=== PATIENT | female | born 1955 | race Caucasian/White ===

== ENCOUNTER → 2020-05-07 | Outpatient (CLI) | payer BC ==
--- NOTE | 2020-05-07 18:44 | BD ---
EXAMINATION TYPE: Axial Bone Density DATE OF EXAM: 05/07/2020 COMPARISON: 03.02.2015 CLINICAL HISTORY: 64 YR OLD FEMALE....ICD-10 CODE: Z78.0 POST MENOPAUSAL Height: 66 Weight: 115 FRAX RISK QUESTIONS: Glucocorticoids (More than 3mos): YES (Ex: prednisone, prednisolone, methylprednisolone, dexamethasone, and hydrocortisone). History of Fracture in Adulthood: YES Secondary Osteoporosis: YES 3. Menopause before 45: YES Current Tobacco Use: YES RISK FACTORS HISTORY OF: History of Wrist Fracture: RT WRIST AT 62 YRS OLD Postmenopausal woman: YES AT AGE 40 YRS OLD....TOTAL HYST Take estrogen and/or progesterone medications: YES, IN THE PAST FOR ABOUT 1-2 YRS Hyperparathyroidism: NO Adrenal Insufficiency: NO MEDICATIONS: Prednisone or other steroids: SYMBACORT FOR COPD Additional Medications: VIT D AND CALCIUM Additional History: COPD EXAM MEASUREMENTS: Bone mineral densitometry was performed using the 6fusion System. Bone mineral density as measured about the Lumbar spine is: ----- L1-L4(G/cm2): 0.851 T Score Values are as follows: ----- L1: -4.3 ----- L2: -3.5 ----- L3: -2.3 ----- L4: -1.3 ----- L1-L4: -2.7 Bone mineral density has: Decreased -2.9% SINCE.... 03.02.2015 Bone mineral density about the R hip (g/cm2): 0.725 Bone mineral density about the L hip (g/cm2): 0.700 T Score values are as follows: -----R Neck: -2.6 -----L Neck: -2.5 -----R Total: -2.2 -----L Total: -2.4 Bone mineral density has: Decreased -8.7% SINCE..... 03.02.2015 FRAX%s: THERE IS A 30.9% CHANCE FOR A MAJOR OSTEOPOROTIC FX AND A 13.0% FOR HIP......PROBABILITY FO R FX IN 10 YRS TIME IMPRESSION: Osteoporosis (T Score less than -2.5). There is increased fracture risk and therapy is usually indicated based on age. Re-Screen 1-2 years. NOTE: T-SCORE=SD OF THE YOUNG ADULT MEAN.
== END | disposition home or self-care (01) ==
LOC: RADBDWWP 11:16
PROVIDERS: ATTEND Family Medicine
DX: M81.8 Other osteoporosis without current pathological fracture (principal)
CPT/HCPCS: 77063; 77067; 77080

== ENCOUNTER 2020-05-23 08:39 | Day surgery (SDC) | payer BC ==
[2020-05-21 11:54] VITALS: BMI 18.0
[~2020-05-23 08:39] MED LIST: LACTATED RINGERS 1,000 ML IV SCH; LIDOCAINE 1% (10MG/ML) FOR IV START INTRADERMA PRN
[2020-05-23 09:23] VITALS: TEMP 98.4
[2020-05-23] MEDS ORDERED: PROPOFOL 10 MG/ML 20 ML VIAL IV ONE (10:06)
--- NOTE | 2020-05-23 10:22 | P.PCN ---
Date of Procedure: 05/23/20 Procedure(s) Performed: BRIEF HISTORY: Patient is a 64-year-old pleasant white female scheduled for an elective colonoscopy as a part of evaluation of prior history of colon polyps. Last colonoscopy was 5 years ago and was noted to have an adenoma. PROCEDURE PERFORMED: Colonoscopy. PREOPERATIVE DIAGNOSIS: History of colon polyps. IV sedation per Anesthesia. PROCEDURE: After informed consent was obtained, the patient, was brought into the endoscopy unit. IV sedation was administered by Anesthesia under continuous monitoring. Digital rectal examination was normal. Initially the Olympus CF-160 flexible video colonoscope was then inserted in the rectum, gradually advanced into the cecum without any difficulty. Careful examination was performed as the scope was gradually being withdrawn. Ileocecal valve and the appendiceal orifice were visualized and appeared normal. Prep was excellent. Mucosa of the cecum, ascending colon, transverse colon, descending colon, sigmoid colon, and rectum appeared normal. Scattered sigmoid diverticulosis. Retroflexion was performed in the rectum and no lesions were seen. The patient tolerated the procedure well. IMPRESSION: Normal-appearing colon from rectum to cecum with no evidence of colorectal neoplasia . Scattered sigmoid diverticulosis. RECOMMENDATIONS: Findings of this examination were discussed with the patient as well as a family. She was advised to have a repeat surveillance colonoscopy in 5 years from now because of prior history of colon polyps.
[2020-05-23 10:56] VITALS: BP 122/61; PULSE 59; RESP 16
== END 2020-05-23 11:06 | disposition home or self-care (01) ==
LOC: ORWHC2ENDO 08:39
PROVIDERS: ATTEND Internal Medicine Gastroenterology
DX: Z12.11 Encounter for screening for malignant neoplasm of colon (principal); K57.30 Diverticulosis of large intestine without perforation or abscess without bleeding; Z86.010 Personal history of colon polyps; J44.9 Chronic obstructive pulmonary disease, unspecified; F17.210 Nicotine dependence, cigarettes, uncomplicated; Z79.899 Other long term (current) drug therapy; Z90.710 Acquired absence of both cervix and uterus; Z79.51 Long term (current) use of inhaled steroids; Z88.0 Allergy status to penicillin
CPT/HCPCS: J2704; G0105; 45378

== ENCOUNTER → 2021-02-22 | Outpatient (CLI) | payer BC ==
--- NOTE | 2021-02-22 10:15 | P.STRESS ---
- Stress Test Note Stress Test Results/Findings: Exam Performed: NM stress lexiscan cardiolite Exam Date: 02/22/21 Reason for Exam: KAYLYN Height: 5 ft 7 in Weight: 53.524 kg Protocol: LEXISCAN CARDIOLITE Stage: NA Duration of Exercise: NA Resting Heart Rate: 67 Resting Blood Pressure: 131/84 Maximum Achieved Heart Rate: 83 Maximum Achieved Blood Pressure: 168/74 85% PMHR: 133 100% PMHR: 157 METS: NA Technologist Comment: Stress Test Results/Findings: This is a 65-year-old female with history of COPD family history of ischemic heart disease and also smoking history. Being evaluated for symptoms of shortness of breath. Stress data: Baseline EKG showed sinus rhythm with mild diffuse nonspecific ST-T changes. Blood pressure at rest is 130/84, pulse rate of 67. A standard dose of Lexiscan was infused. EKGs did not reveal any significant changes to suggest ischemia. Final impression: #1. Negative Lexiscan stress test #2. Report on the nuclear portion of the test to be provided by the radiologist.
--- NOTE | 2021-02-22 11:32 | NM ---
EXAMINATION TYPE: NM stress lexiscan cardiolite DATE OF EXAM: 02/22/2021 COMPARISON: NONE HISTORY: Chest pain TECHNIQUE: After the intravenous administration of 9.9 mCi Tc 99m Sestamibi - Cardiolite resting SPE CT images acquired 45 minutes post injection. The patient received 0.4mg Lexiscan, 26.199 mCi Tc 99m Sestamibi - Stress images obtained 30 minutes post injection FINDINGS: Review of stress and rest SPECT images demonstrates no distinct perfusion abnormality. Gated analysi s shows normal wall motion with an estimated left ventricular ejection fraction of 68 %. IMPRESSION: No scintigraphic evidence for reversible ischemia.
== END | disposition home or self-care (01) ==
LOC: RADNMMAIN 07:42
PROVIDERS: ATTEND Family Medicine
DX: R06.02 Shortness of breath (principal); R07.89 Other chest pain
CPT/HCPCS: 93017; 78452; A9500

== ENCOUNTER → 2021-05-08 | Outpatient (CLI) | payer BC ==
--- NOTE | 2021-05-10 08:54 | MM ---
Reason for exam: screening (asymptomatic). Last mammogram was performed 1 year ago. History: Patient is postmenopausal and is nulliparous. Family history of breast cancer in paternal aunt at age 40. Took estrogen for 1 year. Physical Findings: A clinical breast exam by your physician is recommended on an annual basis and results should be correlated with mammographic findings. MG 3D Screening Mammo W/Cad Bilateral CC and MLO view(s) were taken. Prior study comparison: May 07, 2020, bilateral MG 3d screening mammo w/cad. March 02, 2015, bilateral MG screening mammo w CAD. The breast tissue is extremely dense which could obscure a lesion on mammography. No significant changes when compared with prior studies. ASSESSMENT: Benign, BI-RAD 2 RECOMMENDATION: Routine screening mammogram of both breasts in 1 year.
== END | disposition home or self-care (01) ==
LOC: RADMAMWWP 07:02
PROVIDERS: ATTEND Family Medicine
DX: Z12.31 Encounter for screening mammogram for malignant neoplasm of breast (principal); Z78.0 Asymptomatic menopausal state; Z80.3 Family history of malignant neoplasm of breast
CPT/HCPCS: 77063; 77067

== ENCOUNTER → 2022-05-09 | Outpatient (CLI) | payer BC ==
--- NOTE | 2022-05-09 10:38 | BD ---
EXAMINATION TYPE: Axial Bone Density DATE OF EXAM: 05/09/2022 CLINICAL HISTORY: 66 years old Female. ICD-10 CODE: M81.8 OSTEOPOROSIS Height: 66.25 Weight: 112.6 FRAX RISK QUESTIONS: Alcohol (3 or more units per day): no Family History (Parent hip fracture): no Glucocorticoids (More than 3mos): no History of Fracture in Adulthood: wrist Secondary Osteoporosis: 1. Type 1 Diabetes: no 2. Hyperthyroidism: no 3. Menopause before 45: yes 4. Malnutrition: no 5. Chronic liver disease: no Rheumatoid Arthritis: no Current Tobacco Use: yes RISK FACTORS HISTORY OF: Hip Fracture (Right/Left): no Spine Fracture: no History of Wrist Fracture: Rt wrist When: age 62 Surgery to Spine/Hip(right/left)/Wrist (right/left): no Family History of Osteoporosis: no Active: yes Diet low in dairy products/other sources of calcium: no Postmenopausal woman: yes Take estrogen and/or progesterone medications: no Lost more than 2 inches in height since high school: no Frequent falls: no Poor Health: no Hyperparathyroidism: no Adrenal Insufficiency: no MEDICATIONS: Prednisone or other steroids: no Thyroid Medications: no Osteoporosis Medications: Fosamax How Long: past years Additional Medications: vit d, zinc, calcium, multi vit, inhaler Additional History: EXAM MEASUREMENTS: Bone mineral densitometry was performed using the [employer] System. Bone mineral density as measured about the Lumbar spine is: ----- L1-L4(G/cm2): 0.884 T Score Values are as follows: ----- L1: -4.3 ----- L2: -3.3 ----- L3: -2.0 ----- L4: -0.8 ----- L1-L4: -2.5 Z Score Values are as follows: ----- L1: -2.3 ----- L2: -1.3 ----- L3: 0.1 ----- L4: 1.2 ----- L1-L4: -0.4 Bone mineral density has: increased 3.9 % since study of: 05/07/2020 Bone mineral density about the R hip (g/cm2): 0.741 Bone mineral density about the L hip (g/cm2): 0.746 T Score values are as follows: -----R Neck: -2.1 -----L Neck: -2.2 -----R Total: -2.1 -----L Total: -2.2 Z Score values are as follows: -----R Neck: -0.3 -----L Neck: -0.4 -----R Total: -0.6 -----L Total: -0.6 Bone mineral density has: increased 3.9 % since study of: 05/07/2020 FRAX%s: The graph provided illustrates a 16.6% chance for a major osteoporotic fx and a 5.0% chance f or the hips probability for fx in 10 years time. IMPRESSION: Osteopenia (T Score between -2.5 and -1). There is slightly increased risk of fracture and the patient may be considered for treatment. Re-Screen 2-5 years. NOTE: T-SCORE=SD OF THE YOUNG ADULT MEAN.
--- NOTE | 2022-05-12 16:53 | MM ---
Reason for Exam: Screening (asymptomatic). Last screening mammogram was performed 12 month(s) ago. Patient History: Menarche at age 17. Patient has no children. Left ovary removed at age 47. Right ovary removed at age 47. Hysterectomy at age 47. Postmenopausal. Patient used Estrogen for 1 year. Paternal aunt had breast cancer, age 40. Risk Values: Ruba 5 year model risk: 1.6%. NCI Lifetime model risk: 6.6%. Prior Study Comparison: 03/02/2015 Bilateral Screening Mammogram, [facility]. 05/07/2020 Bilateral Screening Mammogram, [facility]. 05/08/2021 Bilateral Screening Mammogram, [facility]. Tissue Density: The breast tissue is extremely dense which could obscure a lesion on mammography. Findings: Analyzed By CAD. Abdomen appears stable. There is an oval enhancing margins in the lateral view, present previously. No suspicious groups of microcalcifications, spiculated or lobular masses, architectural distortion or other secondary signs of malignancy are mammographically apparent. Overall Assessment: Benign, BI-RAD 2 Management: Screening Mammogram of both breasts in 1 year. A negative mammogram report should not preclude additional follow up of suspicious palpable abnormalities. Patient should continue monthly self breast exam. A clinical breast exam by your physician is recommended on an annual basis and results should be correlated with mammographic findings. Electronically signed and approved by: Gabriele Melara D.O. Radiologis
== END | disposition home or self-care (01) ==
LOC: RADMAMWWP 08:10
PROVIDERS: ATTEND Family Medicine
DX: Z12.31 Encounter for screening mammogram for malignant neoplasm of breast (principal); M81.8 Other osteoporosis without current pathological fracture; M85.89 Other specified disorders of bone density and structure, multiple sites; Z78.0 Asymptomatic menopausal state; Z80.3 Family history of malignant neoplasm of breast
CPT/HCPCS: 77063; 77067; 77080

== ENCOUNTER 2022-11-18 15:19 | Inpatient (IN) | payer BC ==
[2022-11-18 16:24] LABS: Basophils % (A) 0 %; Eosinophils # (A) 0.3 k/uL (0-0.7); Eosinophils % (A) 2 %; HCT 43.6 % (34.0-46.0); HGB 14.5 gm/dL (11.4-16.0); Lymphocytes # (A) 0.7 k/uL (1.0-4.8); Lymphocytes % (A) 4 %; MCH 32.2 pg (25.0-35.0); MCHC 33.2 g/dL (31.0-37.0); Mean Platelet Volume 8.3; Monocytes # (A) 0.3 k/uL (0-1.0); Monocytes % (A) 2 %; Neutrophils # (A) 17.9 k/uL (1.3-7.7); Neutrophils % (A) 93 %; Platelet Count 182 k/uL (150-450); RBC 4.49 m/uL (3.80-5.40); RDW 12.1 % (11.5-15.5); WBC 19.2 k/uL (3.8-10.6)
[2022-11-18 16:43] LABS: Appearance,Urine Clear (Clear); Bacteria,Urine Rare /hpf; Bilirubin,Urine Negative (Negative); Blood,Urine Negative (Negative); Color,Urine Yellow; Glucose,Urine (UA) Negative (Negative); Ketones,Urine 1+ (Negative); Leukocyte Esterase,Urine Small (Negative); Mucus,Urine Rare /hpf; Nitrite,Urine Negative (Negative); Protein,Urine 1+ (Negative); RBC,Urine 12 /hpf (0-5); Specific Gravity,Urine 1.025 (1.001-1.035); Squamous Epithelial Cell,Urine <1 /hpf (0-4); Urobilinogen,Urine <2.0 mg/dL (<2.0); WBC,Urine 2 /hpf (0-5)
--- NOTE | 2022-11-18 16:44 | ED ---
Abdominal Pain HPI - General Chief Complaint: Abdominal Pain Stated Complaint: referral- abd pain, Time Seen by Provider: 11/18/22 16:41 Source: patient, RN notes reviewed Mode of arrival: ambulatory Limitations: no limitations - History of Present Illness Initial Comments: 67-year-old female presents emergency Department with chief complaint of right-sided abdominal pain. Patient states started 2 days ago has worsened. Patient states that pain is primarily right lower quadrant. Patient is nausea no prior abdominal surgeries. - Related Data Home Medications Medication Instructions Recorded Confirmed Alendronate Sodium [Fosamax] 70 mg PO MO 11/18/22 11/18/22 Fluticasone/Umeclidin/Vilanter 1 puff INHALATION RT-DAILY 11/18/22 11/18/22 [Trelegy Ellipta 100-62.5-25] Hyoscyamine Sulfate [Levsin-Sl] 0.125 mg SL Q4H PRN 11/18/22 11/18/22 Naproxen Sodium [Aleve] 220 - 440 mg PO Q8H PRN 11/18/22 11/18/22 Ondansetron Odt [Zofran Odt] 4 mg PO TID PRN 11/18/22 11/18/22 Sulfamethox-Tmp 800-160Mg [Bactrim 1 tab PO BID 11/18/22 11/18/22 DS 800-160 mg] Allergies Allergy/AdvReac Type Severity Reaction Status Date / Time Penicillins Allergy Unknown Verified 11/18/22 21:44 Childhood Review of Systems ROS Statement: Those systems with pertinent positive or pertinent negative responses have been documented in the HPI. ROS Other: All systems not noted in ROS Statement are negative. Past Medical History Past Medical History: COPD Additional Past Medical History / Comment(s): JUST DX 02/12/15-GIVEN SYMBICORT IN OFFICE AND HAS CHANTIX PRESCRIPTION AT HER PHARMACY BUT SHE HASN'T PICKED IT UP YET.GLASSES DAILY USE History of Any Multi-Drug Resistant Organisms: None Reported Past Surgical History: Hysterectomy Additional Past Surgical History / Comment(s): CYST OFF OVARY Past Anesthesia/Blood Transfusion Reactions: Motion Sickness, Postoperative Nausea & Vomiting (PONV) Additional Past Anesthesia/Blood Transfusion Reaction / Comment(s): PT HAS TROUBLE WITH PLANES, BOATS & AMUSEMENT RIDES-ANYTHING THAT SPINS Past Psychological History: No Psychological Hx Reported Smoking Status: Current every day smoker Past Alcohol Use History: None Reported Past Drug Use History: Marijuana - Past Family History Mother Family Medical History: Coronary Artery Disease (CAD), CVA/TIA, Hypertension Additional Family Medical History / Comment(s): CAROTID SURGERY Father Family Medical History: Congestive Heart Failure (CHF), COPD General Exam - General Exam Comments Initial Comments: Visual Physical Exam Vital signs reviewed General: Well-appearing, nontoxic, no acute distress. Head: Normocephalic, atraumatic Eyes: PERRLA, EOMI ENT: Airway patent Chest: Nonlabored breathing Skin: No visual rash, normal skin tone Neuro: Alert and oriented 3 Musculoskeletal: No gross abnormalities Limitations: no limitations General appearance: alert, in no apparent distress Head exam: Present: atraumatic, normocephalic, normal inspection Eye exam: Present: normal appearance, PERRL, EOMI. Absent: scleral icterus, conjunctival injection, periorbital swelling ENT exam: Present: normal exam, normal oropharynx, mucous membranes moist Neck exam: Present: normal inspection, full ROM. Absent: tenderness, meningismus, lymphadenopathy Respiratory exam: Present: normal lung sounds bilaterally. Absent: respiratory distress, wheezes, rales, rhonchi, stridor Cardiovascular Exam: Present: regular rate, normal rhythm, normal heart sounds. Absent: systolic murmur, diastolic murmur, rubs, gallop, clicks GI/Abdominal exam: Present: soft, tenderness, normal bowel sounds. Absent: distended, guarding, rebound, rigid Course Vital Signs 11/18/22 11/18/22 15:44 20:02 Temperature 99.5 F Pulse Rate 105 H 77 Respiratory 16 16 Rate Blood Pressure 105/51 126/67 O2 Sat by Pulse 95 94 L Oximetry Medical Decision Making - Medical Decision Making I performed a quick note portion of this chart Signed Marvel Ulloa PA-C Was pt. sent in by a medical professional or institution ([facility]ins, DROP [facility]GER, urgent care, hospital, or senior living...) When possible be specific @ -No Did you speak to anyone other than the patient for history (EMS, parent, family, police, friend...)? What history was obtained from this source @ -No Did you review nursing and triage notes (agree or disagree)? Why? @ -I reviewed and agree with nursing and triage notes Were old charts reviewed (outside hosp., previous admission, EMS record, old EKG, old radiological studies, urgent care reports/EKG's, senior living records)? Report findings @ -No old charts were reviewed Differential Diagnosis (chest pain, altered mental status, abdominal pain women, abdominal pain men, vaginal bleeding, weakness, fever, dyspnea, syncope, headach e, dizziness, GI bleed, back pain, seizure, CVA, palpatations, mental health, musculoskeletal)? @ -Differential Abdominal Pain Women: Appendicitis, Cholecystitis, diverticulosis, ischemic bowel, pancreatitis, hepatitis, UTI, gastroenteritis, AAA, incarcerated hernia, bowel obstruction, constipation, inflammatory bowel, hepatitis, peptic ulcer disease, splenic infarction, perforated viscus, vulvitis, ovarian torsion, PID, kidney stone, placenta abruption, this is not meant to be an all-inclusive listble EKG interpreted by me (3pts min.). @ -[None X-rays interpreted by me (1pt min.). @ -None done CT interpreted by me (1pt min.). @ -CT does not show evidence of appendicitis, no appendix is visualized there is mild ileus noted there is a noted distended gallbladder. U/S interpreted by me (1pt. min.). @ -None done What testing was considered but not performed or refused? (CT, X-rays, U/S, labs)? Why? @ -None What meds were considered but not given or refused? Why? @ -None Did you discuss the management of the patient with other professionals (professionals i.e. , PA, DROP FORGER, lab, RT, psych nurse, manager social services, plodder operator, te acher, chief communications officer, case management coordinator)? Give summary @ -[Dr. Graves regarding patient's symptoms, leukocytosis, concern for appendicitis not identified and CT. Patient will be admitted for IV antibiotics, pain control, IV fluids and reevaluation he did recommend repeat CAT scan with rectal contrast. Was smoking cessation discussed for >3mins.? @ -No Was critical care preformed (if so, how long)? @ -No Were there social determinants of health that impacted care today? How? (Homeles sness, low income, unemployed, alcoholism, drug addiction, transportation, low edu. Level, literacy, decrease access to med. care, half-way, rehab)? @ -No Was there de-escalation of care discussed even if they declined (Discuss DNR or withdrawal of care, Hospice)? DNR status @ -No What co-morbidities impacted this encounter? (DM, HTN, Smoking, COPD, CAD, Cancer, CVA, ARF, Chemo, Hep., AIDS, mental health diagnosis, sleep apnea, morbid obesity)? @ -None Was patient admitted / discharged? Hospital course, mention meds given and route, prescriptions, significant lab abnormalities, going to OR and other pertinent info. @ -Admitted for observation given patient's leukocytosis, right lower quadrant pain, fever. Patient have repeat CAT scan, Zosyn was ordered pain control ordered. Undiagnosed new problem with uncertain prognosis? @ -No Drug Therapy requiring intensive monitoring for toxicity (Heparin, Nitro, Insulin, Cardizem)? @ -No Were any procedures done? @ -No Diagnosis/symptom? @ -Abdominal pain, rule out appendicitis Acute, or Chronic, or Acute on Chronic? @ -Acute Uncomplicated (without systemic symptoms) or Complicated (systemic symptoms)? @ -Uncomplicated Side effects of treatment? @ -No] Exacerbation, Progression, or Severe Exacerbation? @ -[No] Poses a threat to life or bodily function? How? (Chest pain, [place], [place], pneumonia, PE, COPD, DKA, ARF, appy, cholecystitis, CVA, Diverticulitis, Homicidal, Suicidal, threat to staff... and all critical care pts) @ -[No] - Lab Data Result diagrams: 11/18/22 15:55 11/18/22 15:55 Lab Results 11/18/22 11/18/22 11/18/22 Range/Units 15:55 15:55 15:55 WBC 19.2 H (3.8-10.6) k/uL RBC 4.49 (3.80-5.40) m/uL Hgb 14.5 (11.4-16.0) gm/dL Hct 43.6 (34.0-46.0) % MCV 97.0 (80.0-100.0) fL MCH 32.2 (25.0-35.0) pg MCHC 33.2 (31.0-37.0) g/dL RDW 12.1 (11.5-15.5) % Plt Count 182 (150-450) k/uL MPV 8.3 Neutrophils % 93 % Lymphocytes % 4 % Monocytes % 2 % Eosinophils % 2 % Basophils % 0 % Neutrophils # 17.9 H (1.3-7.7) k/uL Lymphocytes # 0.7 L (1.0-4.8) k/uL Monocytes # 0.3 (0-1.0) k/uL Eosinophils # 0.3 (0-0.7) k/uL Basophils # 0.0 (0-0.2) k/uL Sodium 131 L (137-145) mmol/L Potassium 4.4 (3.5-5.1) mmol/L Chloride 98 (98-107) mmol/L Carbon Dioxide 24 (22-30) mmol/L Anion Gap 9 mmol/L BUN 15 (7-17) mg/dL Creatinine 0.49 L (0.52-1.04) mg/dL Est GFR (CKD-EPI)AfAm >90 (>60 ml/min/1.73 sqM) Est GFR (CKD-EPI)NonAf >90 (>60 ml/min/1.73 sqM) Glucose 104 H (74-99) mg/dL Plasma Lactic Acid Fox (0.7-2.0) mmol/L Calcium 8.7 (8.4-10.2) mg/dL Total Bilirubin 0.5 (0.2-1.3) mg/dL AST 30 (14-36) U/L ALT 19 (4-34) U/L Alkaline Phosphatase 97 (38-126) U/L Total Protein 6.4 (6.3-8.2) g/dL Albumin 3.7 (3.5-5.0) g/dL Urine Color Yellow Urine Appearance Clear (Clear) Urine pH 6.0 (5.0-8.0) Ur Specific [place] 1.025 (1.001-1.035) Urine Protein 1+ H (Negative) Urine Glucose (UA) Negative (Negative) Urine Ketones 1+ H (Negative) Urine Blood Negative (Negative) Urine Nitrite Negative (Negative) Urine Bilirubin Negative (Negative) Urine Urobilinogen <2.0 (<2.0) mg/dL Ur Leukocyte Esterase Small H (Negative) Urine RBC 12 H (0-5) /hpf Urine WBC 2 (0-5) /hpf Ur Squamous Epith Cells <1 (0-4) /hpf Urine Bacteria Rare H (None) /hpf Urine Mucus Rare H (None) /hpf 11/18/22 Range/Units 15:55 WBC (3.8-10.6) k/uL RBC (3.80-5.40) m/uL Hgb (11.4-16.0) gm/dL Hct (34.0-46.0) % MCV (80.0-100.0) fL MCH (25.0-35.0) pg MCHC (31.0-37.0) g/dL RDW (11.5-15.5) % Plt Count (150-450) k/uL MPV Neutrophils % % Lymphocytes % % Monocytes % % Eosinophils % % Basophils % % Neutrophils # (1.3-7.7) k/uL Lymphocytes # (1.0-4.8) k/uL Monocytes # (0-1.0) k/uL Eosinophils # (0-0.7) k/uL Basophils # (0-0.2) k/uL Sodium (137-145) mmol/L Potassium (3.5-5.1) mmol/L Chloride (98-107) mmol/L Carbon Dioxide (22-30) mmol/L Anion Gap mmol/L BUN (7-17) mg/dL Creatinine (0.52-1.04) mg/dL Est GFR (CKD-EPI)AfAm (>60 ml/min/1.73 sqM) Est GFR (CKD-EPI)NonAf (>60 ml/min/1.73 sqM) Glucose (74-99) mg/dL Plasma Lactic Acid Fox 1.3 (0.7-2.0) mmol/L Calcium (8.4-10.2) mg/dL Total Bilirubin (0.2-1.3) mg/dL AST (14-36) U/L ALT (4-34) U/L Alkaline Phosphatase (38-126) U/L Total Protein (6.3-8.2) g/dL Albumin (3.5-5.0) g/dL Urine Color Urine Appearance (Clear) Urine pH (5.0-8.0) Ur Specific [place] (1.001-1.035) Urine Protein (Negative) Urine Glucose (UA) (Negative) Urine Ketones (Negative) Urine Blood (Negative) Urine Nitrite (Negative) Urine Bilirubin (Negative) Urine Urobilinogen (<2.0) mg/dL Ur Leukocyte Esterase (Negative) Urine RBC (0-5) /hpf Urine WBC (0-5) /hpf Ur Squamous Epith Cells (0-4) /hpf Urine Bacteria (None) /hpf Urine Mucus (None) /hpf Disposition Clinical Impression: Abdominal pain Disposition: [facility] Time of Disposition: 20:28
[2022-11-18 16:52] LABS: ALT 19 U/L (4-34); AST 30 U/L (14-36); African American GFR (CKD) >90 (>60 ml/min/1.73 sqM); Albumin 3.7 g/dL (3.5-5.0); Alkaline Phosphatase 97 U/L (38-126); Anion Gap 9 mmol/L; Blood Urea Nitrogen 15 mg/dL (7-17); Calcium 8.7 mg/dL (8.4-10.2); Carbon Dioxide 24 mmol/L (22-30); Chloride 98 mmol/L (98-107); Glucose 104 mg/dL (74-99); Non-African American GFR(CKD) >90 (>60 ml/min/1.73 sqM); Potassium 4.4 mmol/L (3.5-5.1); Sodium 131 mmol/L (137-145); Total Bilirubin 0.5 mg/dL (0.2-1.3); Total Protein 6.4 g/dL (6.3-8.2)
[2022-11-18] MEDS ORDERED: HYDROmorphone 0.5 MG/0.5 ML SYRINGE IVP STA (18:15)
[2022-11-18] MEDS: ONDANSETRON 4 MG/2 ML VIAL IVP STA (18:51)
--- NOTE | 2022-11-18 19:44 | CT ---
EXAMINATION TYPE: CT abdomen pelvis w con DATE OF EXAM: 11/18/2022 COMPARISON: None INDICATION: RLQ pain. DLP: 439.5 mGycm, Automated exposure control for dose reduction was used. CONTRAST: 100 ml mL of Isovue 300. Study performed without Oral Contrast TECHNIQUE: Axial images were obtained from above the diaphragm to the pubic rami in the axial plane a t 5 mm thick sections. Reconstructed images are reviewed on the computer in the coronal plane. FINDINGS: Limited CT sections are obtained the lung bases. The lung bases are clear. CT ABDOMEN: Liver: Normal Spleen: Normal Pancreas: Normal Adrenal glands: The adrenal glands are normal. Gallbladder: Distended. Kidneys: No masses are evident. No hydronephrosis is present. No cysts are present. No renal stone s are evident. Delayed images through the kidneys demonstrate tiny cortical renal cysts. Kidneys are otherwise unremarkable. Aorta: Vascular calcification is within the aorta. Inferior vena cava: Normal. CT PELVIS: Loops of bowel within the abdomen and pelvis are normal. This study is lateral contrast imaging a ll evaluation. Distal small bowel loops contain fluid. Appendix: Not identified. There is a possibility of mesenteric fat limiting evaluation for inflammato ry changes. No obvious dilated tubular structures identified. Clinical management of any suspected ap pendicitis will be required. Urinary bladder: Normal. Genitourinary structures: Prostate is unremarkable Osseous structures: No suspicious lytic or sclerotic lesions. IMPRESSION: 1. Appendix is not identified. No suspicious changes to suggest appendicitis although this is limite d. Clinical management of any suspected appendicitis will be required. 2. Nonspecific bowel with some fluid-filled small bowel loops. Mild ileus may be present. Obstruction is not identified at this time. Follow-up can be performed as clinically indicated
[2022-11-18] MEDS ORDERED: ONDANSETRON 4 MG/2 ML VIAL IVP PRN (20:28)
[2022-11-18] MEDS ORDERED: NALOXONE 0.4 MG/ML 1 ML VIAL IV PRN (20:28)
[2022-11-18] MEDS ORDERED: HYDROmorphone 0.5 MG/0.5 ML SYRINGE IVP PRN (20:28)
[2022-11-18] MEDS ORDERED: METOCLOPRAMIDE 5 MG/ML 2 ML VIAL IVP STA (20:33)
[2022-11-18] MEDS: SODIUM CHLORIDE 0.9% 1,000 ML IV SCH (21:11)
[2022-11-19] MEDS: IOPAMIDOL CONTRAST (ORAL USE) VIAL PO PRN ×2 (03:59→05:30)
[2022-11-19] MEDS: metroNIDAZOLE-NS PMX 500 MG in SALINE 1 100ML.BAG IVPB SCH ×4 (03:59→23:32)
--- NOTE | 2022-11-19 07:20 | CT ---
EXAMINATION TYPE: CT abdomen pelvis wo con DATE OF EXAM: 11/19/2022 COMPARISON: 11/18/2022 HISTORY: Pain Examination of the solid and hollow viscera is limited given the lack of contrast. Unenhanced CT of t he abdomen and pelvis was performed. The lack of intravenous contrast limits evaluation. GI contrast was utilized. Lack of intra-abdominal fat further limits evaluation. FINDINGS: LUNG BASES: No evidence for nodule. No evidence for infiltrate. Trace pericardial effusion noted. LIVER/GB: Gallbladder hydrops at nearly 10 cm greatest dimension. No space-occupying hepatic lesion. PANCREAS: No pancreatic mass identified. No inflammatory process seen. SPLEEN: No evidence for splenomegaly. No intrasplenic lesions seen. ADRENALS: No adrenal nodules identified. No evidence for thickening. KIDNEYS: No evidence for renal mass. No nephrolithiasis. No hydronephrosis. BOWEL: Nonvisualization of the appendix. Correlate clinically to exclude acute appendicitis. Small noelle wel wall thickening is nonspecific and could reflect enteritis. Differential diagnostic possibilities include infectious, inflammatory and vascular causes. No evidence of bowel obstruction. No inflammat ory process. Lymph nodes: No evidence for adenopathy greater than 1 cm. Abdominal aorta: Atheromatous changes seen. No evidence for aneurysm. Genital organs: No significant abnormality. Other: No significant abnormality. IMPRESSION: 1. Correlate for nonspecific small bowel enteritis. 2. Nonvisualization of the appendix. 3. Gallbladder hydrops.
[2022-11-19] MEDS ORDERED: KETOROLAC 15 MG/ML 1 ML VIAL IVP PRN (10:29)
[2022-11-19 11:35] VITALS: BMI 18.3
--- NOTE | 2022-11-19 12:21 | P.CONS ---
History of Present Illness - Reason for Consult Preoperative clearance, hyponatremia - History of Present Illness Patient presented with right-sided abdominal pain is undergoing cholecystectomy today MrDarlene was consulted for preoperative clearance patient is bit hyponatremic and is receiving IV fluids does have history of COPD continues to smoke half a pack of cigars per day which she is willing to quit patient does have leukocytosis. REVIEW OF SYSTEMS: CONSTITUTIONAL: No fever, no malaise, no fatigue. HEENT: No recent visual problems or hearing problems. Denied any sore throat. CARDIOVASCULAR: No chest pain, orthopnea, PND, no palpitations, no syncope. PULMONARY: No shortness of breath, no cough, no hemoptysis. GASTROINTESTINAL: As mentioned in HPI NEUROLOGICAL: No headaches, no weakness, no numbness. HEMATOLOGICAL: Denies any bleeding or petechiae. GENITOURINARY: Denies any burning micturition, frequency, or urgency. MUSCULOSKELETAL/RHEUMATOLOGICAL: Denies any joint pain, swelling, or any muscle pain. ENDOCRINE: Denies any polyuria or polydipsia. The rest of the 14-point review of systems is negative. PHYSICAL EXAMINATION: GENERAL: The patient is alert and oriented x3, not in any acute distress. Well developed, well nourished. HEENT: Pupils are round and equally reacting to light. EOMI. No scleral icterus. No conjunctival pallor. Normocephalic, atraumatic. No pharyngeal erythema. No thyromegaly. CARDIOVASCULAR: S1 and S2 present. No murmurs, rubs, or gallops. PULMONARY: Chest is clear to auscultation, no wheezing or crackles. ABDOMEN: Soft, nontender, nondistended, normoactive bowel sounds. No palpable organomegaly. MUSCULOSKELETAL: No joint swelling or deformity. EXTREMITIES: No cyanosis, clubbing, or pedal edema. NEUROLOGICAL: Gross neurological examination did not reveal any focal deficits. SKIN: No rashes. Assessment and plan -Medical clearance for gallbladder surgery: Patient is low to intermediate operative risk despite of smoking for laparoscopic cholecystectomy. -Hypervolemic hyponatremia continue with IV fluids -COPD without any acute exacerbation close clinical monitoring continue with inhaled steroids DVT prophylaxis: As per primary service Past Medical History Past Medical History: COPD Additional Past Medical History / Comment(s): JUST DX 02/12/15-GIVEN SYMBICORT IN OFFICE AND HAS CHANTIX PRESCRIPTION AT HER PHARMACY BUT SHE HASN'T PICKED IT UP YET.GLASSES DAILY USE History of Any Multi-Drug Resistant Organisms: None Reported Past Surgical History: Hysterectomy Additional Past Surgical History / Comment(s): CYST OFF OVARY Past Anesthesia/Blood Transfusion Reactions: Motion Sickness, Postoperative Nausea & Vomiting (PONV) Additional Past Anesthesia/Blood Transfusion Reaction / Comm: PT HAS TROUBLE WITH PLANES, BOATS & AMUSEMENT RIDES-ANYTHING THAT SPINS Past Psychological History: No Psychological Hx Reported Smoking Status: Current every day smoker Past Alcohol Use History: None Reported Past Drug Use History: Marijuana - Past Family History Mother Family Medical History: Coronary Artery Disease (CAD), CVA/TIA, Hypertension Additional Family Medical History / Comment(s): CAROTID SURGERY Father Family Medical History: Congestive Heart Failure (CHF), COPD Medications and Allergies Home Medications Medication Instructions Recorded Confirmed Type Alendronate Sodium [Fosamax] 70 mg PO MO 11/18/22 11/18/22 History Fluticasone/Umeclidin/Vilanter 1 puff INHALATION RT-DAILY 11/18/22 11/18/22 History [Trelegy Ellipta 100-62.5-25] Hyoscyamine Sulfate [Levsin-Sl] 0.125 mg SL Q4H PRN 11/18/22 11/18/22 History Naproxen Sodium [Aleve] 220 - 440 mg PO Q8H PRN 11/18/22 11/18/22 History Ondansetron Odt [Zofran Odt] 4 mg PO TID PRN 11/18/22 11/18/22 History Sulfamethox-Tmp 800-160Mg [Bactrim 1 tab PO BID 11/18/22 11/18/22 History DS 800-160 mg] Allergies Allergy/AdvReac Type Severity Reaction Status Date / Time Penicillins Allergy Unknown Verified 11/18/22 21:44 Childhood Physical Exam Vitals: Vital Signs Temp Pulse Pulse Resp BP BP Pulse Ox 11/19/22 07:31 99.4 F 66 124/65 94 L 11/19/22 02:00 97.8 F 79 16 118/68 95 11/18/22 22:53 97.6 F 71 16 124/60 92 L 11/18/22 20:02 77 16 126/67 94 L 11/18/22 15:44 99.5 F 105 H 16 105/51 95 Intake and Output 11/18/22 11/19/22 11/19/22 22:59 06:59 14:59 Other: Voiding Method Toilet Toilet Toilet # Voids 1 Weight 53.07 kg 53.07 kg 53.07 kg Results CBC & Chem 7: 11/18/22 15:55 11/18/22 15:55 Labs: Abnormal Lab Results - Last 24 Hours (Table) 11/18/22 11/18/22 11/18/22 Range/Units 15:55 15:55 15:55 WBC 19.2 H (3.8-10.6) k/uL Neutrophils # 17.9 H (1.3-7.7) k/uL Lymphocytes # 0.7 L (1.0-4.8) k/uL Sodium 131 L (137-145) mmol/L Creatinine 0.49 L (0.52-1.04) mg/dL Glucose 104 H (74-99) mg/dL Urine Protein 1+ H (Negative) Urine Ketones 1+ H (Negative) Ur Leukocyte Esterase Small H (Negative) Urine RBC 12 H (0-5) /hpf Urine Bacteria Rare H (None) /hpf Urine Mucus Rare H (None) /hpf
[2022-11-19 12:34] LABS: Basophils % (A) 0 %; Eosinophils # (A) 0.3 k/uL (0-0.7); Eosinophils % (A) 2 %; HCT 38.6 % (34.0-46.0); HGB 13.1 gm/dL (11.4-16.0); Lymphocytes # (A) 0.4 k/uL (1.0-4.8); Lymphocytes % (A) 3 %; MCH 32.9 pg (25.0-35.0); MCHC 33.8 g/dL (31.0-37.0); MCV 97.4 fL (80.0-100.0); Mean Platelet Volume 8.7; Monocytes # (A) 0.6 k/uL (0-1.0); Monocytes % (A) 5 %; Neutrophils # (A) 12.4 k/uL (1.3-7.7); Neutrophils % (A) 90 %; Platelet Count 186 k/uL (150-450); RBC 3.96 m/uL (3.80-5.40); RDW 12.1 % (11.5-15.5); WBC 13.8 k/uL (3.8-10.6)
--- NOTE | 2022-11-19 13:33 | P.GSHP ---
History of Present Illness H&P Date: 11/19/22 CHIEF COMPLAINT: Abdominal pain HISTORY OF PRESENT ILLNESS: This is a 67-year-old female who presented with right lower quadrant abdominal pain for the past 5 days. She's been dealing with nausea as well. She does also report pain in the left lower quadrant and upper right side of abdomen. She has been nauseated. No vomiting. She has been having loose bowel movements. Denies any fevers chills or sweats. Past surgical history does include hysterectomy. Patient does have leukocytosis. Ronald ca noted at the hospital for possible acute appendicitis. Computed tomography scan reports nonvisualization of the appendix. Correlate clinically to exclude acute appendicitis. PAST MEDICAL HISTORY: COPD PAST SURGICAL HISTORY: Hysterectomy MEDICATIONS: See below ALLERGIES: See below SOCIAL HISTORY: No illicit drug use. REVIEW OF SYSTEMS: CONSTITUTIONAL: Denies fever or chills. HEENT: Denies blurred vision, vision changes, or eye pain. Denies hemoptysis CARDIOVASCULAR: Denies chest pain or pressure. RESPIRATORY: No shortness of breath. GASTROINTESTINAL: See HPI for pertinent findings HEMATOLOGIC: Denies bleeding disorders. GENITOURINARY: Denies any blood in urine or increased urinary frequency. SKIN: Denies pruitis. Denies rash. PHYSICAL EXAM: VITAL SIGNS: Reviewed GENERAL: Well-developed in no acute distress. HEENT: No sclera icterus. Extraocular movements grossly intact. Moist buccal mucosa. Head is atraumatic, normocephalic. No nasal drainage. ABDOMEN: Soft. Nondistended. Severe tenderness to palpation in the right lower quadrant. Mild tenderness in the left lower quadrant and right upper side of abdomen. NEUROLOGIC: Alert and oriented. Cranial nerves II through XII grossly intact. LABORATORY DATA: WBC 19.2 down to 13.8 Hgb 13.1 platelets 186 Sodium 131 potassium 4.4 creatinine 0.49 Lactic acid 1.3 LFTs normal IMAGING: Computed tomography scan abdomen and pelvis without contrast reports appendix is not identified. No suspicious changes to suggest appendicitis although this is limited. Nonspecific bowel with some fluid filled small bowel loops. Mild ileus may be present. Obstruction is not identified. Computed tomography scan abdomen and pelvis with IV contrast correlate for nonspecific small bowel enteritis. Nonvisualization of the appendix. Gallbladder hydrops. ASSESSMENT: 1. Possible appendicitis with severe right lower quadrant pain PLAN: -Patient scheduled for laparoscopic appendectomy today with Dr. Graves -Keep patient nothing by mouth -Continue IV antibiotics -Continue IV fluids -Continue supportive care Physician Clinical Resource Manager note has been reviewed by physician. Signing provider agrees with the documented findings, assessment, and plan of care. Past Medical History Past Medical History: COPD Additional Past Medical History / Comment(s): JUST DX 02/12/15-GIVEN SYMBICORT IN OFFICE AND HAS CHANTIX PRESCRIPTION AT HER PHARMACY BUT SHE HASN'T PICKED IT UP YET.GLASSES DAILY USE History of Any Multi-Drug Resistant Organisms: None Reported Past Surgical History: Hysterectomy Additional Past Surgical History / Comment(s): CYST OFF OVARY Past Anesthesia/Blood Transfusion Reactions: Motion Sickness, Postoperative Nausea & Vomiting (PONV) Additional Past Anesthesia/Blood Transfusion Reaction / Comment(s): PT HAS TROUBLE WITH PLANES, BOATS & AMUSEMENT RIDES-ANYTHING THAT SPINS Past Psychological History: No Psychological Hx Reported Smoking Status: Current every day smoker Past Alcohol Use History: None Reported Past Drug Use History: Marijuana - Past Family History Mother Family Medical History: Coronary Artery Disease (CAD), CVA/TIA, Hypertension Additional Family Medical History / Comment(s): CAROTID SURGERY Father Family Medical History: Congestive Heart Failure (CHF), COPD Medications and Allergies Home Medications Medication Instructions Recorded Confirmed Type Alendronate Sodium [Fosamax] 70 mg PO MO 11/18/22 11/18/22 History Fluticasone/Umeclidin/Vilanter 1 puff INHALATION RT-DAILY 11/18/22 11/18/22 History [Trelegy Ellipta 100-62.5-25] Hyoscyamine Sulfate [Levsin-Sl] 0.125 mg SL Q4H PRN 11/18/22 11/18/22 History Naproxen Sodium [Aleve] 220 - 440 mg PO Q8H PRN 11/18/22 11/18/22 History Ondansetron Odt [Zofran Odt] 4 mg PO TID PRN 11/18/22 11/18/22 History Sulfamethox-Tmp 800-160Mg [Bactrim 1 tab PO BID 11/18/22 11/18/22 History DS 800-160 mg] Allergies Allergy/AdvReac Type Severity Reaction Status Date / Time Penicillins Allergy Unknown Verified 11/18/22 21:44 Childhood Surgical - Exam Vital Signs Temp Pulse Resp BP Pulse Ox 99.5 F 105 H 16 105/51 95 11/18/22 15:44 11/18/22 15:44 11/18/22 15:44 11/18/22 15:44 11/18/22 15:44 Results - Labs 11/19/22 12:00 11/18/22 15:55 Abnormal Lab Results - Last 24 Hours (Table) 11/18/22 11/18/22 11/18/22 Range/Units 15:55 15:55 15:55 WBC 19.2 H (3.8-10.6) k/uL Neutrophils # 17.9 H (1.3-7.7) k/uL Lymphocytes # 0.7 L (1.0-4.8) k/uL Sodium 131 L (137-145) mmol/L Creatinine 0.49 L (0.52-1.04) mg/dL Glucose 104 H (74-99) mg/dL Urine Protein 1+ H (Negative) Urine Ketones 1+ H (Negative) Ur Leukocyte Esterase Small H (Negative) Urine RBC 12 H (0-5) /hpf Urine Bacteria Rare H (None) /hpf Urine Mucus Rare H (None) /hpf 11/19/22 Range/Units 12:00 WBC 13.8 H (3.8-10.6) k/uL Neutrophils # 12.4 H (1.3-7.7) k/uL Lymphocytes # 0.4 L (1.0-4.8) k/uL Sodium (137-145) mmol/L Creatinine (0.52-1.04) mg/dL Glucose (74-99) mg/dL Urine Protein (Negative) Urine Ketones (Negative) Ur Leukocyte Esterase (Negative) Urine RBC (0-5) /hpf Urine Bacteria (None) /hpf Urine Mucus (None) /hpf Diabetes panel 11/18/22 Range/Units 15:55 Sodium 131 L (137-145) mmol/L Potassium 4.4 (3.5-5.1) mmol/L Chloride 98 (98-107) mmol/L Carbon Dioxide 24 (22-30) mmol/L BUN 15 (7-17) mg/dL Creatinine 0.49 L (0.52-1.04) mg/dL Glucose 104 H (74-99) mg/dL Calcium 8.7 (8.4-10.2) mg/dL AST 30 (14-36) U/L ALT 19 (4-34) U/L Alkaline Phosphatase 97 (38-126) U/L Total Protein 6.4 (6.3-8.2) g/dL Albumin 3.7 (3.5-5.0) g/dL Calcium panel 11/18/22 Range/Units 15:55 Calcium 8.7 (8.4-10.2) mg/dL Albumin 3.7 (3.5-5.0) g/dL Pituitary panel 11/18/22 Range/Units 15:55 Sodium 131 L (137-145) mmol/L Potassium 4.4 (3.5-5.1) mmol/L Chloride 98 (98-107) mmol/L Carbon Dioxide 24 (22-30) mmol/L BUN 15 (7-17) mg/dL Creatinine 0.49 L (0.52-1.04) mg/dL Glucose 104 H (74-99) mg/dL Calcium 8.7 (8.4-10.2) mg/dL Adrenal panel 11/18/22 Range/Units 15:55 Sodium 131 L (137-145) mmol/L Potassium 4.4 (3.5-5.1) mmol/L Chloride 98 (98-107) mmol/L Carbon Dioxide 24 (22-30) mmol/L BUN 15 (7-17) mg/dL Creatinine 0.49 L (0.52-1.04) mg/dL Glucose 104 H (74-99) mg/dL Calcium 8.7 (8.4-10.2) mg/dL Total Bilirubin 0.5 (0.2-1.3) mg/dL AST 30 (14-36) U/L ALT 19 (4-34) U/L Alkaline Phosphatase 97 (38-126) U/L Total Protein 6.4 (6.3-8.2) g/dL Albumin 3.7 (3.5-5.0) g/dL Assessment and Plan Plan: The patient has severe right lower quadrant pain. Patient's CAT scan was repeated with contrast. Patient's appendix was not visualized. She also has some nonspecific enteritis. Patient also has a hydropic gallbladder. The patient is exquisitely tender right lower quadrant. She has rebound or guarding. Patient will undergo laparoscopic appendectomy. I did discuss the patient that she may require small bowel resection for enteritis.
[2022-11-19] MEDS ORDERED: LACTATED RINGERS 1,000 ML IV ONE ×3 (13:46→16:58)
[2022-11-19] MEDS ORDERED: DEXAMETHASONE SOD PHOSPHATE 4 MG/ML 1 ML VIAL IVP ONE (13:54)
[2022-11-19] MEDS: ONDANSETRON 4 MG/2 ML VIAL IVP STA (13:54)
[2022-11-19] MEDS ORDERED: SCOPOLAMINE 1 MG/72 HR PATCH TRANSDERM ONE (13:55)
[2022-11-19] MEDS ORDERED: HEPARIN SODIUM,PORCINE/PF 5,000 UNIT/0.5 ML SYRINGE SQ ONE (14:01)
[2022-11-19] MEDS ORDERED: HEPARIN SODIUM,PORCINE 5,000 UNIT/ML 1 ML VIAL SQ ONE (14:03)
[2022-11-19] MEDS ORDERED: LIDOCAINE 1% INJ 10MG/ML (20 ML MDV) ONE (14:25)
[2022-11-19] MEDS ORDERED: fentaNYL (PF) 50 MCG/ML 2 ML AMP ONE (14:25)
[2022-11-19] MEDS ORDERED: ROCURONIUM 10 MG/ML (5 ML VIAL) IV ONE (14:25)
[2022-11-19] MEDS ORDERED: HYDROmorphone (PF) 1 MG/ML ONE (14:25)
[2022-11-19] MEDS ORDERED: SUCCINYLCHOLINE CHLORIDE 200 MG/10 ML VIAL IV ONE (14:25)
[2022-11-19] MEDS ORDERED: MIDAZOLAM 2 MG/2 ML VIAL ONE (14:25)
[2022-11-19] MEDS ORDERED: GLYCOPYRROLATE 0.2 MG/ML 2 ML VIAL ONE (14:25)
[2022-11-19] MEDS ORDERED: NEOSTIGMINE 1 MG/ML 10 ML VIAL ONE (14:25)
[2022-11-19] MEDS ORDERED: PROPOFOL 10 MG/ML 20 ML VIAL IV ONE (14:25)
[2022-11-19] MEDS ORDERED: SODIUM CHLORIDE 0.9% 100 ML with ceFAZolin 2,000 MG IV ONE ×2 (14:30)
[2022-11-19] MEDS ORDERED: BUPIVACAINE (PF) 0.5% 30 ML VIAL SQ ONE (15:09)
[2022-11-19] MEDS: IPRATROPIUM 0.5 MG/2.5 ML NEBU INHALATION SCH ×2 (15:41→19:41)
[2022-11-19] MEDS ORDERED: ACETAMINOPHEN TAB 325 MG TAB PO PRN (16:12)
[2022-11-19] MEDS ORDERED: METOCLOPRAMIDE 5 MG/ML 2 ML VIAL IVP PRN (16:12)
[2022-11-19] MEDS ORDERED: NALOXONE 0.4 MG/ML 1 ML VIAL IV PRN (16:12)
--- NOTE | 2022-11-19 16:12 | P.OP ---
Date of Procedure: 11/19/22 Preoperative Diagnosis: Acute appendicitis Postoperative Diagnosis: Acute appendicitis 15 cm grossly enlarged hydropic gallbladder Pelvic abscess Adhesions Procedure(s) Performed: Diagnostic laparoscopy Exploratory laparotomy Ileocolectomy Open cholecystectomy Drainage of pelvic abscess Anesthesia: JONATHAN Surgeon: Saul Graves Estimated Blood Loss (ml): 100 Pathology: other (Ileocolectomy, gallbladder) Condition: stable Disposition: PACU Description of Procedure: The patient's placed the operative table in supine position. She received general endotracheal tube anesthesia. Her abdomen was prepped and draped usual fashion. A supra umbilical skin incision was made then using a Veress needle the pleural cavity is entered and then the position of the needle was confirmed with positive drop test. After adequate insufflation the 5 mm trochars placed. Cavity. And then the laparoscope placed. Cavity. There were dense adhesions seen in the right lower quadrant. Due to the dense adhesions it was decided perform an exploratory laparotomy. The trocar was withdrawn. The skin was incised in the midline. And then using electrocautery the abdominal wall was divided in the abdomen was entered. Approximately 25 minutes of operative time used to lyse adhesions. The loops of small bowel were quite matted in the right lower quadrant. The patient also had a very distended and abnormal gallbladder. The gallbladder was proximally 20 cm in length and extended all the way to the pelvis. The gallbladder appeared to have inflammation. The loops of bowel were dissected free from the pelvis and then the abscess was entered in the right lower quadrant. The abscess appeared to be from the base of the appendix. At this point it was decided perform a limited ileocolectomy due to significant inflammatory changes around the appendix. The terminal ileum was transected proximal to the ileocecal valve and on the right colon was transected with a GI stapler distal to the ileocecal valve. Using the Enseal device the mesentery the bowel was divided. And then a [id number] functional end-to-end staple anastomosis created using KALINA and TA stapler. 3-0 GI silk sutures using a crotch stitch. The window in the mesentery was closed with 3-0 GI silk suture. Next the gallbladder was examined. It was decided to perform a cholecystectomy due to the significant inflammatory changes of the gallbladder. At this point the gallbladder was grasped with a pair of Sandra clamps. And then the neck of the gallbladder was bluntly dissected. The cystic duct was seen entering the common bile duct. A critical view of safety was achieved. Systemic was then suture ligated with 0 silk ties. The cystic artery was then ligated with 3-0 silk tie. And then the gallbladder was removed liver bed using electrocautery. The specimens of pathology. The liver bed as hemostasis. Several small bleeding points were coagulated with electrocautery. A piece of Surgicel was placed in the liver bed. A BLAISE drain is placed in the right lower quadrant and brought out through the right upper quadrant. This point the abdomen was irrigated. There is no bleeding seen. The fascia was then closed with looped #1 PDS suture. Skin was closed with valerie. The perivenous wound system was placed on top of the close skin. Patient sent to the recovery room in stable condition.
[2022-11-19] MEDS ORDERED: HYDROmorphone 0.5 MG/0.5 ML SYRINGE IVP ONE ×3 (16:35→17:07)
--- NOTE | 2022-11-19 16:38 | XR ---
EXAMINATION TYPE: XR abdomen 1V DATE OF EXAM: 11/19/2022 4:17 PM CLINICAL INDICATION:Female, 67 years old with history of FOREIGN BODY; [facility] COMPARISON: 11/19/2022 CT TECHNIQUE: One radiographic view of the abdomen was obtained. FINDINGS/IMPRESSION: Postsurgical changes of the abdomen with oral contrast seen throughout the bowel. There is Dante-Pr att drainage tubing project over the right pelvis and lower abdomen as well as skin valerie. There ou r no additional radiopaque foreign bodies visualized.
[2022-11-19] MEDS ORDERED: ONDANSETRON 4 MG/2 ML VIAL IVP ONE (17:34)
[2022-11-19] MEDS: SODIUM CHLORIDE 0.9% 1,000 ML IV SCH ×2 (18:03→23:34)
[2022-11-19] MEDS: KETOROLAC 15 MG/ML 1 ML VIAL IVP SCH ×2 (18:29→23:32)
[2022-11-19] MEDS: SYMBICORT 80-4.5 MCG INHALER INHALATION SCH (19:41)
[2022-11-20] MEDS: HYDROmorphone 0.5 MG/0.5 ML SYRINGE IVP PRN ×2 (02:01→09:05)
[2022-11-20] MEDS: ONDANSETRON 4 MG/2 ML VIAL IVP PRN ×3 (02:02→22:57)
[2022-11-20] MEDS: KETOROLAC 15 MG/ML 1 ML VIAL IVP SCH ×3 (05:45→17:54)
[2022-11-20] MEDS ORDERED: NON FORMULARY DRUG (Fluticasone/Umeclidin/Vilanter [Trelegy Ellipta 100-62.5-25] 1 EACH Bl INHALATION SCH (08:00)
[2022-11-20] MEDS: SYMBICORT 80-4.5 MCG INHALER INHALATION SCH ×2 (08:10→19:20)
[2022-11-20] MEDS: IPRATROPIUM 0.5 MG/2.5 ML NEBU INHALATION SCH ×4 (08:10→19:20)
[2022-11-20] MEDS: ENOXAPARIN 40 MG/0.4 ML SYRINGE SQ SCH (08:23)
[2022-11-20] MEDS: metroNIDAZOLE-NS PMX 500 MG in SALINE 1 100ML.BAG IVPB SCH ×2 (08:24→17:58)
[2022-11-20] MEDS ORDERED: PANTOPRAZOLE 40 MG/10 ML VIAL IV SCH (09:00)
--- NOTE | 2022-11-20 09:01 | P.CONS ---
History of Present Illness - Reason for Consult Consult date: 11/19/22 - History of Present Illness Patient is a 67-year-old female with a past medical history significant for COPD current everyday smoker presenting to the hospital yesterday for evaluation of right-sided abdominal pain patient pain started 2 days before presentation the hospital and has progressively got worse patient was described the pain to be sharp almost 10 out of 10 in severity by the time she presented to the hospital without any radiation has felt nauseated and dry heaves but did not have any vomiting denies having any diarrhea or constipation with the symptoms the patient was evaluated on presentation to the hospital the patient did have a low-grade fever of 99.5 F patient was not tachycardic hypot ensive or hypoxic patient did have a white count of 19.2 with a left shift creatinine was 0.49 electrolytes were normal liver enzymes are normal UA was negative patient did have a abdominal pelvis CT correlate for nonspecific small bowel enteritis and nonvisualization of the appendix patient was taken to the OR this afternoon patient did have exploratory laparotomy ileocolectomy open cholecystectomy and drainage of the pelvic abscess patient was started on Rocephin and Flagyl because of her penicillin allergy infectious was consulted for further management of antibiotic therapy Past Medical History Past Medical History: COPD Additional Past Medical History / Comment(s): JUST DX 02/12/15-GIVEN SYMBICORT IN OFFICE AND HAS CHANTIX PRESCRIPTION AT HER PHARMACY BUT SHE HASN'T PICKED IT UP YET.GLASSES DAILY USE History of Any Multi-Drug Resistant Organisms: None Reported Past Surgical History: Hysterectomy Additional Past Surgical History / Comment(s): CYST OFF OVARY Past Anesthesia/Blood Transfusion Reactions: Motion Sickness, Postoperative Nausea & Vomiting (PONV) Additional Past Anesthesia/Blood Transfusion Reaction / Comm: PT HAS TROUBLE WITH PLANES, BOATS & AMUSEMENT RIDES-ANYTHING THAT SPINS Past Psychological History: No Psychological Hx Reported Smoking Status: Current every day smoker Past Alcohol Use History: None Reported Past Drug Use History: Marijuana - Past Family History Mother Family Medical History: Coronary Artery Disease (CAD), CVA/TIA, Hypertension Additional Family Medical History / Comment(s): CAROTID SURGERY Father Family Medical History: Congestive Heart Failure (CHF), COPD Medications and Allergies Home Medications Medication Instructions Recorded Confirmed Type Alendronate Sodium [Fosamax] 70 mg PO MO 11/18/22 11/18/22 History Fluticasone/Umeclidin/Vilanter 1 puff INHALATION RT-DAILY 11/18/22 11/18/22 History [Trelegy Ellipta 100-62.5-25] Hyoscyamine Sulfate [Levsin-Sl] 0.125 mg SL Q4H PRN 11/18/22 11/18/22 History Naproxen Sodium [Aleve] 220 - 440 mg PO Q8H PRN 11/18/22 11/18/22 History Ondansetron Odt [Zofran Odt] 4 mg PO TID PRN 11/18/22 11/18/22 History Sulfamethox-Tmp 800-160Mg [Bactrim 1 tab PO BID 11/18/22 11/18/22 History DS 800-160 mg] Allergies Allergy/AdvReac Type Severity Reaction Status Date / Time Penicillins Allergy Unknown Verified 11/18/22 21:44 Childhood Physical Exam Vitals: Vital Signs Temp Pulse Pulse Resp BP BP Pulse Ox 11/19/22 16:45 87 12 178/58 94 L 11/19/22 16:30 92 14 188/73 96 11/19/22 16:15 97.9 F 95 16 177/68 95 11/19/22 13:50 99.4 F 77 18 114/54 95 11/19/22 07:31 99.4 F 66 124/65 94 L 11/19/22 02:00 97.8 F 79 16 118/68 95 11/18/22 22:53 97.6 F 71 16 124/60 92 L 11/18/22 20:02 77 16 126/67 94 L Intake and Output 11/19/22 11/19/22 11/19/22 06:59 14:59 22:59 Intake Total 1375 200 Output Total 200 Balance 1375 0 Intake: IV 900 200 Intake, IV Titration 475 Amount Sodium Chloride 0.9% 1, 375 000 ml @ 75 mls/hr IV . [id number] FLORIN Rx#:[id number] PMX 500 100 mg In Saline 1 100ml.bag @ 100 mls/hr IVPB Q8HR FLORIN Rx#:[id number] Output: Estimated Blood Loss 200 Other: Voiding Method Toilet Toilet Weight 53.07 kg 53.07 kg Results CBC & Chem 7: 11/19/22 12:00 11/18/22 15:55 Labs: Abnormal Lab Results - Last 24 Hours (Table) 11/19/22 Range/Units 12:00 WBC 13.8 H (3.8-10.6) k/uL Neutrophils # 12.4 H (1.3-7.7) k/uL Lymphocytes # 0.4 L (1.0-4.8) k/uL Assessment and Plan Plan: 1patient was in the hospital abdominal pain right-sided in this patient who is status post laparotomy with evidence of perforated appendicitis status post ileocolectomy and also noticed to have significant inflammation of the gallbladder status post cholecystectomy likely on exam need to cover for enteric gram-negative both aerobes anaerobes patient has not been on antibiotics in the recent past more likely sensitive pathogen 2penicillin allergy there will be the number of antibiotics safe to use. 3we will continue the patient on Rocephin 2 g daily Flagyl while waiting for co ndition to stabilize and culture to finalize We will follow on clinical condition and cultures to further adjust medication if needed Thank you for this consultation we will follow the patient along with you Dictation was produced using [employer] dictation software. please excuse any grammatical, word or spelling errors. Time with Patient: Greater than 30
[2022-11-20 11:12] LABS: Basophils # (A) 0.03 X 10*3/uL (0.00-0.10); Basophils % (A) 0.2 %; Eosinophils # (A) 0.01 X 10*3/uL (0.04-0.35); Eosinophils % (A) 0.1 %; HCT 38.7 % (37.2-46.3); HGB 12.7 d/dL (12.0-15.0); Lymphocytes % (A) 4.5 %; MCH 31.7 pg (27.0-32.0); MCHC 32.8 d/dL (32.0-37.0); MCV 96.5 FL (80.0-97.0); Mean Platelet Volume 11.2 FL (9.5-12.2); NRBC Per 100 WBC 0 X 10*3/uL (0.00-0.01); Neutrophils # (A) 11.79 X 10*3/uL (1.80-7.70); Neutrophils % (A) 88.9 %; Platelet Count 259 X 10*3/uL (140-440); RBC 4.01 X 10*6/uL (4.10-5.20); RDW 12.4 % (11.5-14.5); WBC 13.27 X 10*3/uL (4.50-10.00)
--- NOTE | 2022-11-20 12:06 | P.PN ---
Progress Note - Text Progress Note Date: 11/20/22 The patient is postoperative day 1 from open ileocolectomy for perforated appendicitis with abscess and open cholecystectomy for large hydropic gallbladder. Patient states she feels better today. She has had no significant bowel function. On exam vital signs appear stable. Abdomen is soft. BLAISE drain has some minimal serous output. Incision is healing. Patient will not start her diet yet. She'll continue receive supportive care.
[2022-11-20] MEDS: HYDROmorphone 1 MG/ML 1 ML SYRINGE IVP PRN ×2 (13:02→22:58)
[2022-11-20 13:38] LABS: ALT 46 U/L (8-44); AST 64 U/L (13-35); Albumin 3.5 d/dL (3.8-4.9); Albumin/Globulin Ratio 1.67 Ratio (1.60-3.17); Alkaline Phosphatase 159 U/L (41-126); Blood Urea Nitrogen 17.1 mg/dL (9.0-27.0); Calcium 8.4 mg/dL (8.7-10.3); Carbon Dioxide 21.7 mmol/L (21.6-31.8); Chloride 99 mmol/L (96-109); Globulin 2.1 d/dL (1.6-3.3); Glucose 92 mg/dL (70-110); Potassium 4.5 mmol/L (3.5-5.5); Sodium 136 mmol/L (135-145); Total Bilirubin 0.3 mg/dL (0.3-1.2); Total Protein 5.6 d/dL (6.2-8.2)
[2022-11-20] MEDS: SODIUM CHLORIDE 0.9% 1,000 ML IV SCH (15:00)
--- NOTE | 2022-11-20 16:28 | P.PN ---
Subjective Progress Note Date: 11/20/22 Principal diagnosis: Appendicitis with abscess and cholecystitis Patient is a 67-year-old female with a past medical history significant for COPD current everyday smoker presenting to the hospital yesterday for evaluation of right-sided abdominal pain, the patient is status post laparotomy with right ileocolectomy and cholecystectomy drainage of the pelvic abscess On today's evaluation that is 11/20/2022, the patient remains to be afebrile the patient is breathing comfortably on room air, the patient denies chest pain and no significant cough or sputum production, patient denies nausea/vomiting , abdominal pain is currently controlled did not have any bowel movement Patient did have a white count of 13.27, creatinine 0.5 Objective - Vital Signs Vital signs: Vital Signs Temp 98.7 F 11/20/22 12:45 Pulse 93 11/20/22 12:45 Resp 16 11/20/22 12:45 BP 137/67 11/20/22 12:45 Pulse Ox 93 L 11/20/22 12:45 FiO2 Intake & Output 11/19/22 11/20/22 11/20/22 18:59 06:59 18:59 Intake Total 1575 0 Output Total 200 380 Balance 1375 -380 Weight 53.07 kg Intake: IV 1100 Intake, IV Titration 475 Amount Sodium Chloride 0.9% 1, 375 000 ml @ 75 mls/hr IV . [id number] [facility] Rx#:[id number] metroNIDAZOLE-NS PMX 500 100 mg In Saline 1 100ml.bag @ 100 mls/hr IVPB Q8HR [facility] Rx#:[id number] Oral 0 Output: Drainage 80 Right Anterior Abdomen 80 Urine 300 Estimated Blood Loss 200 Other: Voiding Method Toilet Toilet Toilet - Exam GENERAL DESCRIPTION: An elderly female lying in bed in no distress RESPIRATORY SYSTEM: Unlabored breathing , decreased breath sounds at bases HEART: S1 S2 regular rate and rhythm , ABDOMEN: Soft , no tenderness EXTREMITIES: No edema feet - Labs CBC & Chem 7: 11/20/22 06:03 11/20/22 06:03 Labs: Abnormal Lab Results - Last 24 Hours (Table) 11/20/22 11/20/22 Range/Units 06:03 06:03 WBC 13.27 H (4.50-10.00) X 10*3/uL RBC 4.01 L (4.10-5.20) X 10*6/uL Neutrophils # 11.79 H (1.80-7.70) X 10*3/uL Lymphocytes # 0.60 L (0.90-5.00) X 10*3/uL Eosinophils # 0.01 L (0.04-0.35) X 10*3/uL Anion Gap 15.30 H (4.00-12.00) mmol/L Creatinine 0.5 L (0.6-1.5) mg/dL BUN/Creatinine Ratio 34.20 H (12.00-20.00) Ratio Calcium 8.4 L (8.7-10.3) mg/dL AST 64 H (13-35) U/L ALT 46 H (8-44) U/L Alkaline Phosphatase 159 H (41-126) U/L Total Protein 5.6 L (6.2-8.2) d/dL Albumin 3.5 L (3.8-4.9) d/dL Microbiology - Last 24 Hours (Table) 11/18/22 21:00 Blood Culture - Preliminary Blood 11/18/22 20:45 Blood Culture - Preliminary Blood Assessment and Plan (1) Cholecystitis Current Visit: Yes Status: Acute Code(s): K81.9 - CHOLECYSTITIS, UNSPECIFIED SNOMED Code(s): 47373857 (2) Leukocytosis Current Visit: Yes Status: Acute Code(s): D72.829 - ELEVATED WHITE BLOOD CELL COUNT, UNSPECIFIED SNOMED Code(s): 551784680 (3) Perforated appendicitis Current Visit: Yes Status: Acute Code(s): K35.32 - AC APPENDICITIS W PERF, LOC PERITONITIS, & GANGR, W/O ABSCS SNOMED Code(s): 93931527 Plan: 1patient was in the hospital abdominal pain right-sided in this patient who is status post laparotomy with evidence of perforated appendicitis status post ileocolectomy and also noticed to have significant inflammation of the gallbladder status post cholecystectomy likely on exam need to cover for enteric gram-negative both aerobes anaerobes patient has not been on antibiotics in the recent past more likely sensitive pathogen 2penicillin allergy as a child however subsequently the patient has taken amoxicillin without any problem confirmed by the sister the bedside, clinically doubt true penicillin ALLERGY 3we will discontinue Rocephin and Flagyl. Start the patient Unasyn 3 g every 6 hours Dictation was produced using [employer] dictation software. please excuse any grammatical, word or spelling errors. Time with Patient: Less than 30
[2022-11-20] MEDS: AMPICILLIN-SULBACTAM 3 GM in SODIUM CHLORIDE 0.9% 100 ML IVPB SCH (17:54)
[2022-11-20] MEDS: PANTOPRAZOLE 40 MG/10 ML VIAL IV SCH (21:28)
[2022-11-21] MEDS: AMPICILLIN-SULBACTAM 3 GM in SODIUM CHLORIDE 0.9% 100 ML IVPB SCH ×4 (00:13→17:54)
[2022-11-21] MEDS: KETOROLAC 15 MG/ML 1 ML VIAL IVP SCH ×3 (00:16→12:23)
[2022-11-21] MEDS: SODIUM CHLORIDE 0.9% 1,000 ML IV SCH ×3 (03:14→21:54)
--- NOTE | 2022-11-21 05:37 | P.PN ---
Subjective Progress Note Date: 11/20/22 - Reason for Consult Preoperative clearance, hyponatremia - History of Present Illness Patient presented with right-sided abdominal pain is undergoing cholecystectomy today was consulted for preoperative clearance patient is bit hyponatremic and is receiving IV fluids does have history of COPD continues to smoke half a pack of cigars per day which she is willing to quit patient does have leukocytosis. 11/20/2022 Patient is seen and evaluated in follow-up status post exploratory laparotomy with cholecystectomy and ileocolectomy with drainage of abscess in the pelvis as well as extensive lysis of adhesions. Patient being followed by infectious disease as well maintained on antibiotics. Patient does have prevana wound VAC in place with adequate suction and reports has been up and walking. Patient reports having some lower quadrant abdominal pain on the right otherwise pain is currently controlled on current regimen. Patient is afebrile and has a white count and is maintained on antibiotics. No reports of chest pain or shortness o f breath. Will add incentive spirometer patient remains nothing by mouth per surgery at this time with no significant bowel activity noted. Encouraged continued walking as tolerated. Review of systems: Constitutional: No reports of fatigue, fever, or chills Cardiovascular: No reports of chest pain or palpitations Respiratory: No reports of shortness of breath or cough GI: No reports of nausea, vomiting, or diarrhea, No gas or bowel movement as of yet : No reports of dysuria or retention Neurovascular: No reports of weakness , reports mild right lower quadrant tenderness All medications have been reviewed PHYSICAL EXAMINATION: GENERAL: The patient is alert and oriented x3, not in any acute distress. Well developed, extremely thin built HEENT: Pupils are round and equally reacting to light. EOMI. No scleral icterus. No conjunctival pallor. Normocephalic, atraumatic. No pharyngeal erythema. No thyromegaly. CARDIOVASCULAR: S1 and S2 present. No murmurs, rubs, or gallops. PULMONARY: Chest is clear to auscultation, no wheezing or crackles. ABDOMEN: Soft, tender in right lower quadrant, nondistended, hypoactive bowel sounds. No palpable organomegaly. MUSCULOSKELETAL: No joint swelling or deformity. EXTREMITIES: No cyanosis, clubbing, or pedal edema. NEUROLOGICAL: Gross neurological examination did not reveal any focal deficits. SKIN: No rashes. Assessment: Abdominal pain, status post exploratory laparotomy with ileocolectomy and cholecystectomy with drainage of pelvic abscess and extensive lysis of adhesions -Continued ongoing nicotine dependence -Leukocytosis most likely secondary to assessment #1 -Hypervolemic hyponatremia continue with IV fluids -COPD without any acute exacerbation -DVT prophylaxis: As per primary service -GI prophylaxis -Full code and plan: Plan: Patient is currently nothing by mouth per surgery and is postop day 1 has been up and walking continues with some right lower quadrant pain although management current regimen We'll provide incentive spirometer and encourage the patient to continue using at least temporarily awake Awaiting a.m. labs will replace electrolytes per protocol Patient is also being followed by infectious disease maintained on IV antibiotics and will continue Encouraged increased activity as tolerated and continued walking frequently throughout the day Will follow-up on repeat labs in the a.m. We will continue to follow with surgery during hospitalization. Thank you kindly for this consultation. The impression and plan of care has been dictated by Ronda Lobo, Nurse Practitioner as directed. Dr. Radha MD I have performed a history and examination and MDM of this patient, discussed the same with the dictator, and agree with the dictator's assessment and plan as written ,documented as a scribe. Based on total visit time, I have performed more than 50% of the visit. Objective - Vital Signs Vital signs: Vital Signs Temp 98.4 F 11/20/22 07:30 Pulse 71 11/20/22 07:30 Resp 17 11/20/22 07:30 BP 112/76 11/20/22 07:30 Pulse Ox 96 11/20/22 07:30 FiO2 Intake & Output 11/19/22 11/20/22 11/20/22 18:59 06:59 18:59 Intake Total 1575 0 Output Total 200 380 Balance 1375 -380 Weight 53.07 kg Intake: IV 1100 Intake, IV Titration 475 Amount Sodium Chloride 0.9% 1, 375 000 ml @ 75 mls/hr IV . [id number] [facility] Rx#:[id number] metroNIDAZOLE-NS PMX 500 100 mg In Saline 1 100ml.bag @ 100 mls/hr IVPB Q8HR [facility] Rx#:[id number] Oral 0 Output: Drainage 80 Right Anterior Abdomen 80 Urine 300 Estimated Blood Loss 200 Other: Voiding Method Toilet Toilet - Labs CBC & Chem 7: 11/20/22 06:03 11/20/22 06:03 Labs: Abnormal Lab Results - Last 24 Hours (Table) 11/19/22 Range/Units 12:00 WBC 13.8 H (3.8-10.6) k/uL Neutrophils # 12.4 H (1.3-7.7) k/uL Lymphocytes # 0.4 L (1.0-4.8) k/uL Microbiology - Last 24 Hours (Table) 11/18/22 21:00 Blood Culture - Preliminary Blood 11/18/22 20:45 Blood Culture - Preliminary Blood
[2022-11-21] MEDS: IPRATROPIUM 0.5 MG/2.5 ML NEBU INHALATION SCH ×4 (07:18→18:35)
[2022-11-21] MEDS: SYMBICORT 80-4.5 MCG INHALER INHALATION SCH ×2 (07:18→18:34)
[2022-11-21] MEDS: PANTOPRAZOLE 40 MG/10 ML VIAL IV SCH ×2 (08:42→21:05)
[2022-11-21] MEDS: ENOXAPARIN 40 MG/0.4 ML SYRINGE SQ SCH (08:42)
[2022-11-21 11:26] LABS: Basophils # (A) 0.03 X 10*3/uL (0.00-0.10); Basophils % (A) 0.3 %; Eosinophils % (A) 2.9 %; HCT 37.6 % (37.2-46.3); HGB 12.1 d/dL (12.0-15.0); Lymphocytes # (A) 0.82 X 10*3/uL (0.90-5.00); Lymphocytes % (A) 7.9 %; MCH 31.3 pg (27.0-32.0); MCHC 32.2 d/dL (32.0-37.0); MCV 97.4 FL (80.0-97.0); Mean Platelet Volume 9.8 FL (9.5-12.2); Monocytes # (A) 0.96 X 10*3/uL (0.20-1.00); Monocytes % (A) 9.2 %; NRBC Per 100 WBC 0 X 10*3/uL (0.00-0.01); Neutrophils # (A) 8.26 X 10*3/uL (1.80-7.70); Neutrophils % (A) 79.4 %; Platelet Count 247 X 10*3/uL (140-440); RBC 3.86 X 10*6/uL (4.10-5.20); RDW 12.5 % (11.5-14.5)
[2022-11-21 11:42] LABS: Calcium 8.1 mg/dL (8.7-10.3); Carbon Dioxide 22.4 mmol/L (21.6-31.8); Chloride 102 mmol/L (96-109); Glucose 70 mg/dL (70-110); Magnesium 1.9 mg/dL (1.5-2.4); Sodium 138 mmol/L (135-145)
--- NOTE | 2022-11-21 13:10 | P.PN ---
Subjective Progress Note Date: 11/21/22 CHIEF COMPLAINT: Appendicitis HISTORY OF PRESENT ILLNESS: Patient is seen and examined today as a follow-up. She is postop day #2 for open ileocolectomy for perforated appendicitis with abscess and open cholecystectomy for large hydropic gallbladder. States her pain is being well managed. She is still not having any flatness. No nausea or vomiting. She has nothing by mouth with ice chips. BLAISE with minimal serosanguineous output. The patient is afebrile. She remains on IV Unasyn. Infectious disease following. PHYSICAL EXAM: VITAL SIGNS: Reviewed. GENERAL: Well-developed in no acute distress. HEENT: No sclera icterus. Extraocular movements grossly intact. Moist buccal mucosa. Head is atraumatic, normocephalic. ABDOMEN: Soft. Nondistended. Mild surgical tenderness, incision well approximated. NEUROLOGIC: Alert and oriented. ASSESSMENT: 1. Postop day #2 open ileal colectomy for perforated appendicitis with abscess and open cholecystectomy for large hydropic gallbladder PLAN: -Continue IV antibiotics -Nothing by mouth with ice chips -Will advance to clear liquid diet once patient has bowel function -Continue pain management -Encourage ambulation -Further recommendations forthcoming based on patient's clinical course The impression and plan of care has been dictated as directed. Dr. Graves I performed a history and examination of this patient, discussed the same with the dictator. I agree with the dictator's note ,documented as a scribe. Any additional findings or plans will be noted. Objective - Vital Signs Vital signs: Vital Signs Temp 98.7 F 11/21/22 12:23 Pulse 69 11/21/22 12:23 Resp 28 H 11/21/22 12:23 BP 130/61 11/21/22 12:23 Pulse Ox 96 11/21/22 12:23 FiO2 Intake & Output 11/20/22 11/21/22 11/21/22 18:59 06:59 18:59 Intake Total 0 Output Total 20 Balance 0 -20 Intake: Oral 0 Output: Drainage 20 Right Anterior Abdomen 20 Other: Voiding Method Toilet Toilet Toilet # Voids 3 1 - Labs CBC & Chem 7: 11/21/22 06:32 11/21/22 06:32 Labs: Abnormal Lab Results - Last 24 Hours (Table) 11/20/22 11/21/22 11/21/22 Range/Units 06:03 06:32 06:32 WBC 10.40 H (4.50-10.00) X 10*3/uL RBC 3.86 L (4.10-5.20) X 10*6/uL MCV 97.4 H (80.0-97.0) FL Neutrophils # 8.26 H (1.80-7.70) X 10*3/uL Lymphocytes # 0.82 L (0.90-5.00) X 10*3/uL Anion Gap 15.30 H 13.60 H (4.00-12.00) mmol/L Creatinine 0.5 L 0.4 L (0.6-1.5) mg/dL BUN/Creatinine Ratio 34.20 H 47.50 H (12.00-20.00) Ratio Calcium 8.4 L 8.1 L (8.7-10.3) mg/dL AST 64 H (13-35) U/L ALT 46 H (8-44) U/L Alkaline Phosphatase 159 H (41-126) U/L Total Protein 5.6 L (6.2-8.2) d/dL Albumin 3.5 L (3.8-4.9) d/dL Microbiology - Last 24 Hours (Table) 11/18/22 21:00 Blood Culture - Preliminary Blood 11/18/22 20:45 Blood Culture - Preliminary Blood 11/19/22 15:53 Gram Stain - Preliminary Other - Other Wound Culture - Preliminary Gram Neg Bacilli
[2022-11-21] MEDS: HYDROmorphone 0.5 MG/0.5 ML SYRINGE IVP PRN (17:53)
[2022-11-21] MEDS: ONDANSETRON 4 MG/2 ML VIAL IVP PRN (17:53)
--- NOTE | 2022-11-21 20:50 | P.PN ---
Subjective Progress Note Date: 11/21/22 - Reason for Consult Preoperative clearance, hyponatremia - History of Present Illness Patient presented with right-sided abdominal pain is undergoing cholecystectomy today MrDarlene was consulted for preoperative clearance patient is bit hyponatremic and is receiving IV fluids does have history of COPD continues to smoke half a pack of cigars per day which she is willing to quit patient does have leukocytosis. 11/20/2022 Patient is seen and evaluated in follow-up status post exploratory laparotomy with cholecystectomy and ileocolectomy with drainage of abscess in the pelvis as well as extensive lysis of adhesions. Patient being followed by infectious disease as well maintained on antibiotics. Patient does have prevana wound VAC in place with adequate suction and reports has been up and walking. Patient reports having some lower quadrant abdominal pain on the right otherwise pain is currently controlled on current regimen. Patient is afebrile and has a white count and is maintained on antibiotics. No reports of chest pain or shortness o f breath. Will add incentive spirometer patient remains nothing by mouth per surgery at this time with no significant bowel activity noted. Encouraged continued walking as tolerated. 11/21/2022 Patient is seen and evaluated in follow-up with no acute overnight issues noted. Patient reports pain is currently controlled and is status post open ileocolectomy for perforated appendicitis with abscess and open cholecystectomy for large hydropic gallbladder. Patient continues on nothing by mouth status with ice chips on occasion and there is some positive bowel sounds noted on exam and patient has been up and walking and is being advanced to clear liquids today per surgery. Patient with incentive spirometer at the bedside and encouraged to continue using at least 10 times every hour while awake. Patient is afebrile maintained on IV antibiotics with infectious disease following an denies any chest pain or shortness of breath. Review of systems: Constitutional: No reports of fatigue, fever, or chills Cardiovascular: No reports of chest pain or palpitations Respiratory: No reports of shortness of breath or cough GI: No reports of nausea, vomiting, or diarrhea, ports feeling starting to pass gas, no bowel movement as of yet : No reports of dysuria or retention Neurovascular: No reports of weakness , reports mild right lower quadrant tenderness that is managed All medications have been reviewed PHYSICAL EXAMINATION: GENERAL: The patient is alert and oriented x3, not in any acute distress. Well developed, extremely thin built HEENT: Pupils are round and equally reacting to light. EOMI. No scleral icterus. No conjunctival pallor. Normocephalic, atraumatic. No pharyngeal erythema. No thyromegaly. CARDIOVASCULAR: S1 and S2 present. No murmurs, rubs, or gallops. PULMONARY: Chest is clear to auscultation, no wheezing or crackles. ABDOMEN: Soft, tender in right lower quadrant, nondistended, bowel sounds. No palpable organomegaly. MUSCULOSKELETAL: No joint swelling or deformity. EXTREMITIES: No cyanosis, clubbing, or pedal edema. NEUROLOGICAL: Gross neurological examination did not reveal any focal deficits. SKIN: No rashes. Assessment: -Abdominal pain, status post exploratory laparotomy with ileocolectomy and cholecystectomy due to perforated appendicitis and hydropic gallbladder -Continued ongoing nicotine dependence -Leukocytosis most likely secondary to assessment #1 -Hypovolemic hyponatremia continue with IV fluids -COPD without any acute exacerbation -DVT prophylaxis: As per primary service -GI prophylaxis -Full code and plan: Plan: Patient is currently nothing by mouth per surgery and is postop day 2 has been up and walking continues with some right lower quadrant pain although management current regimen area patient will be started on clear liquid diet and slowly advanced to full liquids per surgery this afternoon Continue to encourage incentive spirometer and encourage the patient to continue using at least temporarily awake Patient is also being followed by infectious disease maintained on IV antibiotics and will continue Encouraged increased activity as tolerated and continued walking frequently throughout the day Will follow-up on repeat labs in the a.m. We will continue to follow with surgery during hospitalization. Thank you kindly for this consultation. The impression and plan of care has been dictated by Ronda Lobo, Nurse Practitioner as directed. Dr. Merissa MD I have performed a history and examination and MDM of this patient, discussed the same with the dictator, and agree with the dictator's assessment and plan as written ,documented as a scribe. Based on total visit time, I have performed more than 50% of the visit. Objective - Vital Signs Vital signs: Vital Signs Temp 98.7 F 11/21/22 12:23 Pulse 69 11/21/22 12:23 Resp 28 H 11/21/22 12:23 BP 130/61 11/21/22 12:23 Pulse Ox 96 11/21/22 12:23 FiO2 Intake & Output 11/20/22 11/21/22 11/21/22 18:59 06:59 18:59 Intake Total 0 Output Total 20 Balance 0 -20 Weight 53.07 kg Intake: Oral 0 Output: Drainage 20 Right Anterior Abdomen 20 Other: Voiding Method Toilet Toilet Toilet # Voids 3 1 - Labs CBC & Chem 7: 11/21/22 06:32 11/21/22 06:32 Labs: Abnormal Lab Results - Last 24 Hours (Table) 11/21/22 11/21/22 Range/Units 06:32 06:32 WBC 10.40 H (4.50-10.00) X 10*3/uL RBC 3.86 L (4.10-5.20) X 10*6/uL MCV 97.4 H (80.0-97.0) FL Neutrophils # 8.26 H (1.80-7.70) X 10*3/uL Lymphocytes # 0.82 L (0.90-5.00) X 10*3/uL Anion Gap 13.60 H (4.00-12.00) mmol/L Creatinine 0.4 L (0.6-1.5) mg/dL BUN/Creatinine Ratio 47.50 H (12.00-20.00) Ratio Calcium 8.1 L (8.7-10.3) mg/dL Microbiology - Last 24 Hours (Table) 11/18/22 21:00 Blood Culture - Preliminary Blood 11/18/22 20:45 Blood Culture - Preliminary Blood 11/19/22 15:53 Gram Stain - Preliminary Other - Other Wound Culture - Preliminary Gram Neg Bacilli
--- NOTE | 2022-11-21 23:17 | P.PN ---
Subjective Progress Note Date: 11/21/22 Principal diagnosis: Appendicitis with abscess and cholecystitis Patient is a 67-year-old female with a past medical history significant for COPD current everyday smoker presenting to the hospital yesterday for evaluation of right-sided abdominal pain, the patient is status post laparotomy with right ileocolectomy and cholecystectomy drainage of the pelvic abscess On today's evaluation that is 11/21/2022, the patient continues to be afebrile the patient is breathing comfortably on room air, the patient denies chest pain or cough, patient denies abdominal pain and no nausea/vomiting and no diarrhea rather no bowel movement and not passing any gas Patient did have a white count of 10.40, creatinine 0.4 Objective - Vital Signs Vital signs: Vital Signs Temp 98.7 F 11/21/22 12: Pulse 69 11/21/22 12:23 Resp 28 H 11/21/22 12:23 BP 130/61 11/21/22 12:23 Pulse Ox 96 11/21/22 12:23 FiO2 Intake & Output 11/20/22 11/21/22 11/21/22 18:59 06:59 18:59 Intake Total 0 Output Total 20 Balance 0 -20 Intake: Oral 0 Output: Drainage 20 Right Anterior Abdomen 20 Other: Voiding Method Toilet Toilet Toilet # Voids 3 1 - Exam GENERAL DESCRIPTION: An elderly female lying in bed in no distress RESPIRATORY SYSTEM: Unlabored breathing , decreased breath sounds at bases HEART: S1 S2 regular rate and rhythm , ABDOMEN: Soft , no tenderness EXTREMITIES: No edema feet - Labs CBC & Chem 7: 11/21/22 06:32 11/21/22 06:32 Labs: Abnormal Lab Results - Last 24 Hours (Table) 11/20/22 11/21/22 11/21/22 Range/Units 06:03 06:32 06:32 WBC 10.40 H (4.50-10.00) X 10*3/uL RBC 3.86 L (4.10-5.20) X 10*6/uL MCV 97.4 H (80.0-97.0) FL Neutrophils # 8.26 H (1.80-7.70) X 10*3/uL Lymphocytes # 0.82 L (0.90-5.00) X 10*3/uL Anion Gap 15.30 H 13.60 H (4.00-12.00) mmol/L Creatinine 0.5 L 0.4 L (0.6-1.5) mg/dL BUN/Creatinine Ratio 34.20 H 47.50 H (12.00-20.00) Ratio Calcium 8.4 L 8.1 L (8.7-10.3) mg/dL AST 64 H (13-35) U/L ALT 46 H (8-44) U/L Alkaline Phosphatase 159 H (41-126) U/L Total Protein 5.6 L (6.2-8.2) d/dL Albumin 3.5 L (3.8-4.9) d/dL Microbiology - Last 24 Hours (Table) 11/18/22 21:00 Blood Culture - Preliminary Blood 11/18/22 20:45 Blood Culture - Preliminary Blood 11/19/22 15:53 Gram Stain - Preliminary Other - Other Wound Culture - Preliminary Gram Neg Bacilli Assessment and Plan (1) Cholecystitis Current Visit: Yes Status: Acute Code(s): K81.9 - CHOLECYSTITIS, UNSPECIFIED SNOMED Code(s): 70938791 (2) Leukocytosis Current Visit: Yes Status: Acute Code(s): D72.829 - ELEVATED WHITE BLOOD CELL COUNT, UNSPECIFIED SNOMED Code(s): 599690709 (3) Perforated appendicitis Current Visit: Yes Status: Acute Code(s): K35.32 - AC APPENDICITIS W PERF, LOC PERITONITIS, & GANGR, W/O ABSCS SNOMED Code(s): 85207853 Plan: 1patient was in the hospital abdominal pain right-sided in this patient who is status post laparotomy with evidence of perforated appendicitis status post ileocolectomy and also noticed to have significant inflammation of the gallbladder status post cholecystectomy likely on exam need to cover for enteric gram-negative both aerobes anaerobes patient has not been on antibiotics in the recent past more likely sensitive pathogen 2penicillin allergy as a child however subsequently the patient has taken amoxicillin without any problem confirmed by the sister the bedside, clinically doubt true penicillin ALLERGY 3abscess cultures growning gram negative 4- the patient to continue with Unasyn 3 g every 6 hours Dictation was produced using [employer] dictation software. please excuse any grammatical, word or spelling errors. Time with Patient: Less than 30
[2022-11-22] MEDS: AMPICILLIN-SULBACTAM 3 GM in SODIUM CHLORIDE 0.9% 100 ML IVPB SCH ×5 (00:05→23:34)
[2022-11-22] MEDS: HYDROmorphone 0.5 MG/0.5 ML SYRINGE IVP PRN ×4 (00:09→23:35)
[2022-11-22] MEDS: SODIUM CHLORIDE 0.9% 1,000 ML IV SCH ×2 (02:53→20:14)
[2022-11-22 07:35] LABS: Basophils % (A) 1 %; Eosinophils # (A) 0.4 k/uL (0-0.7); Eosinophils % (A) 4 %; HCT 38.8 % (34.0-46.0); HGB 12.7 gm/dL (11.4-16.0); Lymphocytes % (A) 10 %; MCH 32.1 pg (25.0-35.0); MCHC 32.7 g/dL (31.0-37.0); MCV 98.2 fL (80.0-100.0); Mean Platelet Volume 7.9; Monocytes # (A) 0.6 k/uL (0-1.0); Monocytes % (A) 6 %; Neutrophils # (A) 7.1 k/uL (1.3-7.7); Neutrophils % (A) 76 %; Platelet Count 300 k/uL (150-450); RBC 3.95 m/uL (3.80-5.40); RDW 12.1 % (11.5-15.5); WBC 9.3 k/uL (3.8-10.6)
[2022-11-22] MEDS: IPRATROPIUM 0.5 MG/2.5 ML NEBU INHALATION SCH ×4 (07:48→18:48)
[2022-11-22] MEDS: SYMBICORT 80-4.5 MCG INHALER INHALATION SCH ×2 (07:48→18:48)
[2022-11-22 08:07] LABS: African American GFR (CKD) >90 (>60 ml/min/1.73 sqM); Anion Gap 9 mmol/L; Blood Urea Nitrogen 15 mg/dL (7-17); Calcium 8.1 mg/dL (8.4-10.2); Carbon Dioxide 24 mmol/L (22-30); Chloride 104 mmol/L (98-107); Glucose 100 mg/dL (74-99); Magnesium 1.9 mg/dL (1.6-2.3); Non-African American GFR(CKD) >90 (>60 ml/min/1.73 sqM); Potassium 3.6 mmol/L (3.5-5.1); Sodium 137 mmol/L (137-145)
[2022-11-22] MEDS: PANTOPRAZOLE 40 MG/10 ML VIAL IV SCH ×2 (09:09→20:14)
[2022-11-22] MEDS: ENOXAPARIN 40 MG/0.4 ML SYRINGE SQ SCH (09:09)
--- NOTE | 2022-11-22 13:58 | P.PN ---
Subjective Progress Note Date: 11/22/22 Principal diagnosis: Appendicitis with abscess and cholecystitis Patient is a 67-year-old female with a past medical history significant for COPD current everyday smoker presenting to the hospital yesterday for evaluation of right-sided abdominal pain, the patient is status post laparotomy with right ileocolectomy and cholecystectomy drainage of the pelvic abscess On today's evaluation that is 11/22/2022, the patient remains to be afebrile the patient is breathing comfortably on room air and not requiring supplemental oxygen, the patient denies chest pain and no significant cough, patient denies abdominal pain pt has no bowel movement but passing gas Patient did have a white count of 9.3, creatinine 0.35 Objective - Vital Signs Vital signs: Vital Signs Temp 98.3 F 11/22/22 13:54 Pulse 73 11/22/22 13:54 Resp 16 11/22/22 13:54 BP 101/65 11/22/22 13:54 Pulse Ox 100 11/22/22 13:54 FiO2 Intake & Output 11/21/22 11/22/22 11/22/22 18:59 06:59 18:59 Output Total 50 Balance -50 Weight 53.07 kg Output: Drainage 50 Right Anterior Abdomen 50 Other: Voiding Method Toilet Toilet Toilet # Voids 3 1 - Exam GENERAL DESCRIPTION: An elderly female lying in bed in no distress RESPIRATORY SYSTEM: Unlabored breathing , decreased breath sounds at bases HEART: S1 S2 regular rate and rhythm , ABDOMEN: Soft , no tenderness EXTREMITIES: No edema feet - Labs CBC & Chem 7: 11/22/22 06:42 11/22/22 06:42 Labs: Abnormal Lab Results - Last 24 Hours (Table) 11/22/22 Range/Units 06:42 Creatinine 0.35 L (0.52-1.04) mg/dL Glucose 100 H (74-99) mg/dL Calcium 8.1 L (8.4-10.2) mg/dL Microbiology - Last 24 Hours (Table) 11/18/22 21:00 Blood Culture - Preliminary Blood 11/18/22 20:45 Blood Culture - Preliminary Blood 11/19/22 15:53 Gram Stain - Final Other - Other Wound Culture - Final Escherichia coli Assessment and Plan (1) Cholecystitis Current Visit: Yes Status: Acute Code(s): K81.9 - CHOLECYSTITIS, UNSPECIFIED SNOMED Code(s): 56256032 (2) Leukocytosis Current Visit: Yes Status: Acute Code(s): D72.829 - ELEVATED WHITE BLOOD CELL COUNT, UNSPECIFIED SNOMED Code(s): 486612836 (3) Perforated appendicitis Current Visit: Yes Status: Acute Code(s): K35.32 - AC APPENDICITIS W PERF, LOC PERITONITIS, & GANGR, W/O ABSCS SNOMED Code(s): 32580494 Plan: 1patient was in the hospital abdominal pain right-sided in this patient who is status post laparotomy with evidence of perforated appendicitis status post ileocolectomy and also noticed to have significant inflammation of the gallbladder status post cholecystectomy likely on exam need to cover for enteric gram-negative both aerobes anaerobes patient has not been on antibiotics in the recent past more likely sensitive pathogen 2penicillin allergy as a child however subsequently the patient has taken amoxicillin without any problem confirmed by the sister the bedside, clinically doubt true penicillin ALLERGY 3abscess cultures gowning e.coli that is sensitive to unasyn 4- the patient to continue with Unasyn 3 g every 6 hours with plan to finish therapy with oral antibioitcs Dictation was produced using [employer] dictation software. please excuse any grammatical, word or spelling errors. Time with Patient: Less than 30
--- NOTE | 2022-11-22 14:39 | P.PN ---
Subjective Progress Note Date: 11/22/22 CHIEF COMPLAINT: Cholecystitis appendicitis HISTORY OF PRESENT ILLNESS: The patient is a 67-year-old presented with abdominal pain for appendicitis. Laparotomy demonstrated cholecystitis with ileocolectomy performed. Family at bedside. She reports increased pain as she is moving around and avoiding pain medications. She is tolerating full liquid diet but wants more to eat. She reports her wound vac was not working but was changed today for its battery. ROS: No reports of nausea and vomiting. No fevers or chills. No new chest pain. No productive sputum PHYSICAL EXAM: VITAL SIGNS: Reviewed CONSTITUTIONAL: Well developed and in no acute distress. EYES: Conjuctivae without sclera icterus. Extraocular movements grossly intact. HEAD, EARS, NOSE, THROAT: Moist buccal mucosa. Head is atraumatic, normocephalic. Hears conversational speech. No nasal drainage. RESPIRATORY: Non-labored respirations and equal bilateral excursions. CARDIOVASCULAR: Palpable 2+ radial pulses. ABDOMEN: PREVENA dressing intact. MUSCULOSKELETAL: No gross deformity of the lower extremities noted. No clubb ing. No cyanosis. SKIN: Good skin turgor. Well perfused. NEUROLOGIC: Cranial nerves II through XII grossly intact. No focal or lateralizing signs. PSYCH: Appropriate affect. Alert and oriented to person, place and time. CLINICAL LABS: Reviewed. WBC normal, 9.3. Hemoglobin normal 12.7 ASSESSMENT: 1. Appendicitis 2. Cholecystitis PLAN: 1. Increase to low fiber diet 2. Patient re-assured for scheduled non-narcotic pain medications to help with symptoms. 3. Discharge pending clinical course. Objective - Vital Signs Vital signs: Vital Signs Temp 98.7 F 11/22/22 05:43 Pulse 71 11/22/22 05:43 Resp 16 11/22/22 05:43 BP 162/72 11/22/22 05:43 Pulse Ox 92 L 11/22/22 05:43 FiO2 Intake & Output 11/21/22 11/22/22 11/22/22 18:59 06:59 18:59 Output Total 50 Balance -50 Weight 53.07 kg Output: Drainage 50 Right Anterior Abdomen 50 Other: Voiding Method Toilet Toilet Toilet # Voids 3 1 - Labs CBC & Chem 7: 11/22/22 06:42 11/22/22 06:42 Labs: Abnormal Lab Results - Last 24 Hours (Table) 11/22/22 Range/Units 06:42 Creatinine 0.35 L (0.52-1.04) mg/dL Glucose 100 H (74-99) mg/dL Calcium 8.1 L (8.4-10.2) mg/dL Microbiology - Last 24 Hours (Table) 11/18/22 21:00 Blood Culture - Preliminary Blood 11/18/22 20:45 Blood Culture - Preliminary Blood 11/19/22 15:53 Gram Stain - Final Other - Other Wound Culture - Final Escherichia coli
[2022-11-23] MEDS: SODIUM CHLORIDE 0.9% 1,000 ML IV SCH ×3 (03:29→23:47)
[2022-11-23] MEDS: AMPICILLIN-SULBACTAM 3 GM in SODIUM CHLORIDE 0.9% 100 ML IVPB SCH ×4 (05:30→23:47)
[2022-11-23] MEDS: IPRATROPIUM 0.5 MG/2.5 ML NEBU INHALATION SCH ×4 (08:03→18:33)
[2022-11-23] MEDS: SYMBICORT 80-4.5 MCG INHALER INHALATION SCH ×2 (08:03→18:34)
[2022-11-23] MEDS: ENOXAPARIN 40 MG/0.4 ML SYRINGE SQ SCH (08:18)
[2022-11-23] MEDS: PANTOPRAZOLE 40 MG/10 ML VIAL IV SCH ×2 (08:18→20:38)
[2022-11-23] MEDS: HYDROmorphone 0.5 MG/0.5 ML SYRINGE IVP PRN ×3 (08:26→19:26)
--- NOTE | 2022-11-23 15:27 | P.PN ---
Subjective Progress Note Date: 11/23/22 CHIEF COMPLAINT: Cholecystitis appendicitis HISTORY OF PRESENT ILLNESS: The patient is a 67-year-old presented with abdominal pain for appendicitis. Laparotomy demonstrated cholecystitis with ileocolectomy performed. Her pain has improved as she is taking scheduled Tylenol. She reports appropriate right lower quadrant soreness. She reports itching from PREVENA wound vac. ROS: No reports of nausea and vomiting. No fevers or chills. No new chest pain. No productive sputum PHYSICAL EXAM: VITAL SIGNS: Reviewed CONSTITUTIONAL: Well developed and in no acute distress. EYES: Conjuctivae without sclera icterus. Extraocular movements grossly intact. HEAD, EARS, NOSE, THROAT: Moist buccal mucosa. Head is atraumatic, normocephalic. Hears conversational speech. No nasal drainage. RESPIRATORY: Non-labored respirations and equal bilateral excursions. CARDIOVASCULAR: Palpable 2+ radial pulses. ABDOMEN: PREVENA dressing intact. MUSCULOSKELETAL: No gross deformity of the lower extremities noted. No clubbing. No cyanosis. SKIN: Good skin turgor. Well perfused. NEUROLOGIC: Cranial nerves II through XII grossly intact. No focal or lateralizing signs. PSYCH: Appropriate affect. Alert and oriented to person, place and time. CLINICAL LABS: Reviewed. Labs normal 11/22 ASSESSMENT: 1. Appendicitis 2. Cholecystitis PLAN: 1. Continue low fiber diet 2. Disposition in 24 to 48 hrs. Objective - Vital Signs Vital signs: Vital Signs Temp 98.4 F 11/23/22 14:00 Pulse 68 11/23/22 14:00 Resp 16 11/23/22 14:00 BP 164/70 11/23/22 14:00 Pulse Ox 94 L 11/23/22 14:00 FiO2 Intake & Output 11/22/22 11/23/22 11/23/22 18:59 06:59 18:59 Intake Total 118 Output Total 50 Balance 118 -50 Intake: Oral 118 Output: Drainage 50 Right Anterior Abdomen 50 Other: Voiding Method Toilet Toilet Toilet # Voids 4 2 3 - Labs CBC & Chem 7: 11/22/22 06:42 11/22/22 06:42 Labs: Microbiology - Last 24 Hours (Table) 11/19/22 15:53 Anaerobic Culture - Final Other - Other Anaerobic Gm Negative Bacilli
--- NOTE | 2022-11-24 00:02 | P.PN ---
Subjective Progress Note Date: 11/22/22 Patient presented with right-sided abdominal pain is undergoing cholecystectomy today MrDarlene was consulted for preoperative clearance patient is bit hyponatremic and is receiving IV fluids does have history of COPD continues to smoke half a pack of cigars per day which she is willing to quit patient does have leukocytosis. 11/20/2022 Patient is seen and evaluated in follow-up status post exploratory laparotomy with cholecystectomy and ileocolectomy with drainage of abscess in the pelvis as well as extensive lysis of adhesions. Patient being followed by infectious disease as well maintained on antibiotics. Patient does have prevana wound VAC in place with adequate suction and reports has been up and walking. Patient reports having some lower quadrant abdominal pain on the right otherwise pain is currently controlled on current regimen. Patient is afebrile and has a white count and is maintained on antibiotics. No reports of chest pain or shortness of breath. Will add incentive spirometer patient remains nothing by mouth per surgery at this time with no significant bowel activity noted. Encouraged continued walking as tolerated. 11/21/2022 Patient is seen and evaluated in follow-up with no acute overnight issues noted. Patient reports pain is currently controlled and is status post open ileocolectomy for perforated appendicitis with abscess and open cholecystectomy for large hydropic gallbladder. Patient continues on nothing by mouth status with ice chips on occasion and there is some positive bowel sounds noted on exam and patient has been up and walking and is being advanced to clear liquids today per surgery. Patient with incentive spirometer at the bedside and encouraged to continue using at least 10 times every hour while awake. Patient is afebrile maintained on IV antibiotics with infectious disease following an denies any chest pain or shortness of breath. 11/22/2022 Patient is currently resting in bed. Awake alert and oriented x3. Abdominal pain is better. Patient is tolerating clear liquid diet. No bowel movement yet. Patient also encouraged on IV antibiotics now on Unasyn. No nausea or vomiting. No fever no chills. No cough or sputum production. Laboratory data showed WBC 9.3 hemoglobin 12.7 and platelets 300 sodium 137 potassium 3.6 chloride 104 bicarb is 24 BUN 15 and creatinine 0.35 and blood sugar is 100. Review of systems: Constitutional: No reports of fatigue, fever, or chills Cardiovascular: No reports of chest pain or palpitations Respiratory: No reports of shortness of breath or cough GI: No reports of nausea, vomiting, or diarrhea, ports feeling starting to pass gas, no bowel movement as of yet : No reports of dysuria or retention Neurovascular: No reports of weakness , reports mild right lower quadrant tenderness that is managed All medications have been reviewed PHYSICAL EXAMINATION: GENERAL: The patient is alert and oriented x3, not in any acute distress. Well developed, extremely thin built HEENT: Pupils are round and equally reacting to light. EOMI. No scleral icterus. No conjunctival pallor. Normocephalic, atraumatic. No pharyngeal erythema. No thyromegaly. CARDIOVASCULAR: S1 and S2 present. No murmurs, rubs, or gallops. PULMONARY: Chest is clear to auscultation, no wheezing or crackles. ABDOMEN: Soft, tender in right lower quadrant, nondistended, bowel sounds. No palpable organomegaly. MUSCULOSKELETAL: No joint swelling or deformity. EXTREMITIES: No cyanosis, clubbing, or pedal edema. NEUROLOGICAL: Gross neurological examination did not reveal any focal deficits. SKIN: No rashes. Assessment: -Abdominal pain, status post exploratory laparotomy with ileocolectomy and cholecystectomy due to perforated appendicitis and hydropic gallbladder -Continued ongoing nicotine dependence -Leukocytosis most likely secondary to assessment #1 -Hypovolemic hyponatremia continue with IV fluids -COPD without any acute exacerbation -DVT prophylaxis: As per primary service -GI prophylaxis -Full code and plan: Plan: Patient is currently nothing by mouth per surgery and is postop day 3 has been up and walking continues with some right lower quadrant pain although management current regimen area patient will be started on clear liquid diet and slowly advanced to full liquids per surgery this afternoon Continue to encourage incentive spirometer and encourage the patient to continue using at least temporarily awake Patient is also being followed by infectious disease maintained on IV a ntibiotics and will continue Encouraged increased activity as tolerated and continued walking frequently throughout the day Will follow-up on repeat labs in the a.m. We will continue to follow with surgery during hospitalization. Thank you kindly for this consultation. Objective - Vital Signs Vital signs: Vital Signs Temp 98.5 F 11/22/22 19:01 Pulse 67 11/22/22 19:01 Resp 17 11/22/22 19:01 BP 156/65 11/22/22 19:01 Pulse Ox 97 11/22/22 19:01 FiO2 Intake & Output 11/22/22 11/22/22 11/23/22 06:59 18:59 06:59 Intake Total 118 Output Total 50 Balance -50 118 Intake: Oral 118 Output: Drainage 50 Right Anterior Abdomen 50 Other: Voiding Method Toilet Toilet # Voids 1 4 - Labs CBC & Chem 7: 11/22/22 06:42 11/22/22 06:42 Labs: Abnormal Lab Results - Last 24 Hours (Table) 11/22/22 Range/Units 06:42 Creatinine 0.35 L (0.52-1.04) mg/dL Glucose 100 H (74-99) mg/dL Calcium 8.1 L (8.4-10.2) mg/dL Microbiology - Last 24 Hours (Table) 11/18/22 21:00 Blood Culture - Preliminary Blood 11/18/22 20:45 Blood Culture - Preliminary Blood 11/19/22 15:53 Gram Stain - Final Other - Other Wound Culture - Final Escherichia coli
--- NOTE | 2022-11-24 00:03 | P.PN ---
Subjective Progress Note Date: 11/23/22 Patient presented with right-sided abdominal pain is undergoing cholecystectomy today MrDarlene was consulted for preoperative clearance patient is bit hyponatremic and is receiving IV fluids does have history of COPD continues to smoke half a pack of cigars per day which she is willing to quit patient does have leukocytosis. 11/20/2022 Patient is seen and evaluated in follow-up status post exploratory laparotomy with cholecystectomy and ileocolectomy with drainage of abscess in the pelvis as well as extensive lysis of adhesions. Patient being followed by infectious disease as well maintained on antibiotics. Patient does have prevana wound VAC in place with adequate suction and reports has been up and walking. Patient reports having some lower quadrant abdominal pain on the right otherwise pain is currently controlled on current regimen. Patient is afebrile and has a white count and is maintained on antibiotics. No reports of chest pain or shortness of breath. Will add incentive spirometer patient remains nothing by mouth per surgery at this time with no significant bowel activity noted. Encouraged continued walking as tolerated. 11/21/2022 Patient is seen and evaluated in follow-up with no acute overnight issues noted. Patient reports pain is currently controlled and is status post open ileocolectomy for perforated appendicitis with abscess and open cholecystectomy for large hydropic gallbladder. Patient continues on nothing by mouth status with ice chips on occasion and there is some positive bowel sounds noted on exam and patient has been up and walking and is being advanced to clear liquids today per surgery. Patient with incentive spirometer at the bedside and encouraged to continue using at least 10 times every hour while awake. Patient is afebrile maintained on IV antibiotics with infectious disease following an denies any chest pain or shortness of breath. 11/22/2022 Patient is currently resting in bed. Awake alert and oriented x3. Abdominal pain is better. Patient is tolerating clear liquid diet. No bowel movement yet. Patient also encouraged on IV antibiotics now on Unasyn. No nausea or vomiting. No fever no chills. No cough or sputum production. Laboratory data showed WBC 9.3 hemoglobin 12.7 and platelets 300 sodium 137 potassium 3.6 chloride 104 bicarb is 24 BUN 15 and creatinine 0.35 and blood sugar is 100. 11/23/2022 Patient is currently sitting in her recliner. Awake alert and oriented. No complaints of chest pain or shortness of breath. Patient states that he has been having increased leg swelling. Otherwise patient is tolerating oral diet. Abdominal pain is controlled and patient is taking Tylenol. Wound VAC is also in place. Patient is being currently IV antibiotics with Unasyn. Anaerobic cultures showed Endor with gram-negative bacilli and also wound culture showing E. coli. ID is on board. Review of systems: Constitutional: No reports of fatigue, fever, or chills Cardiovascular: No reports of chest pain or palpitations Respiratory: No reports of shortness of breath or cough GI: No reports of nausea, vomiting, or diarrhea, ports feeling starting to pass gas, no bowel movement as of yet : No reports of dysuria or retention Neurovascular: No reports of weakness , reports mild right lower quadrant tenderness that is managed All medications have been reviewed PHYSICAL EXAMINATION: GENERAL: The patient is alert and oriented x3, not in any acute distress. Well developed, extremely thin built HEENT: Pupils are round and equally reacting to light. EOMI. No scleral icterus. No conjunctival pallor. Normocephalic, atraumatic. No pharyngeal erythema. No thyromegaly. CARDIOVASCULAR: S1 and S2 present. No murmurs, rubs, or gallops. PULMONARY: Chest is clear to auscultation, no wheezing or crackles. ABDOMEN: Soft, tender in right lower quadrant, nondistended, bowel sounds. No palpable organomegaly. MUSCULOSKELETAL: No joint swelling or deformity. EXTREMITIES: No cyanosis, clubbing, or pedal edema. NEUROLOGICAL: Gross neurological examination did not reveal any focal deficits. SKIN: No rashes. Assessment: -Abdominal pain, status post exploratory laparotomy with ileocolectomy and cholecystectomy due to perforated appendicitis and hydropic gallbladder -Continued ongoing nicotine dependence -Leukocytosis most likely secondary to assessment #1 -Hypovolemic hyponatremia continue with IV fluids -COPD without any acute exacerbation -DVT prophylaxis: As per primary service -GI prophylaxis -Full code and plan: Plan: Patient is currently nothing by mouth per surgery and is postop day 4 has been up and walking continues with some right lower quadrant pain although management current regimen area patient will be started on clear liquid diet and slowly advanced to full liquids per surgery this afternoon Continue to encourage incentive spirometer and encourage the patient to continue using at least temporarily awake Patient is also being followed by infectious disease maintained on IV antibiotics and will continue Encouraged increased activity as tolerated and continued walking frequently throughout the day Will follow-up on repeat labs in the a.m. We will continue to follow with surgery during hospitalization. Thank you kindly for this consultation. Objective - Vital Signs Vital signs: Vital Signs Temp 98.6 F 11/23/22 19:13 Pulse 67 11/23/22 19:13 Resp 16 11/23/22 19:13 BP 157/66 11/23/22 19:13 Pulse Ox 97 11/23/22 19:13 FiO2 Intake & Output 11/23/22 11/23/22 11/24/22 06:59 18:59 06:59 Intake Total 200 Output Total 50 40 Balance -50 -40 200 Intake: Oral 200 Output: Drainage 50 40 Right Anterior Abdomen 50 40 Other: Voiding Method Toilet Toilet # Voids 2 1 - Labs CBC & Chem 7: 11/22/22 06:42 11/22/22 06:42 Labs: Microbiology - Last 24 Hours (Table) 11/19/22 15:53 Anaerobic Culture - Final Other - Other Anaerobic Gm Negative Bacilli
[2022-11-24] MEDS: HYDROmorphone 0.5 MG/0.5 ML SYRINGE IVP PRN ×2 (00:27→06:34)
[2022-11-24] MEDS: AMPICILLIN-SULBACTAM 3 GM in SODIUM CHLORIDE 0.9% 100 ML IVPB SCH ×3 (05:40→17:49)
[2022-11-24] MEDS: SYMBICORT 80-4.5 MCG INHALER INHALATION SCH ×2 (07:47→18:32)
[2022-11-24] MEDS: IPRATROPIUM 0.5 MG/2.5 ML NEBU INHALATION SCH ×4 (07:47→18:32)
[2022-11-24] MEDS: PANTOPRAZOLE 40 MG/10 ML VIAL IV SCH ×2 (07:52→21:46)
[2022-11-24] MEDS: ENOXAPARIN 40 MG/0.4 ML SYRINGE SQ SCH (07:52)
[2022-11-24 11:39] LABS: Blood Urea Nitrogen 5.4 mg/dL (9.0-27.0); Calcium 8.4 mg/dL (8.7-10.3); Carbon Dioxide 26.3 mmol/L (21.6-31.8); Chloride 100 mmol/L (96-109); Glucose 106 mg/dL (70-110); Potassium 3.6 mmol/L (3.5-5.5); Sodium 139 mmol/L (135-145)
[2022-11-24 11:46] LABS: Basophils # (A) 0.04 X 10*3/uL (0.00-0.10); Basophils % (A) 0.5 %; Eosinophils # (A) 0.35 X 10*3/uL (0.04-0.35); Eosinophils % (A) 4.1 %; Lymphocytes # (A) 1.25 X 10*3/uL (0.90-5.00); Lymphocytes % (A) 14.8 %; MCH 31.4 pg (27.0-32.0); MCHC 33.3 d/dL (32.0-37.0); MCV 94.2 FL (80.0-97.0); Mean Platelet Volume 9.8 FL (9.5-12.2); Monocytes # (A) 0.85 X 10*3/uL (0.20-1.00); Monocytes % (A) 10.1 %; NRBC Per 100 WBC 0 X 10*3/uL (0.00-0.01); Neutrophils % (A) 69.8 %; Platelet Count 391 X 10*3/uL (140-440); RBC 4.14 X 10*6/uL (4.10-5.20); RDW 11.9 % (11.5-14.5); WBC 8.45 X 10*3/uL (4.50-10.00)
[2022-11-24] MEDS: HYDROcodone/APAP 5-325MG 1 EACH TAB PO PRN ×2 (13:56→21:45)
[2022-11-24] MEDS ORDERED: FUROSEMIDE 10 MG/ML 4 ML VIAL IV STA (14:07)
--- NOTE | 2022-11-24 16:01 | P.PN ---
Subjective Progress Note Date: 11/24/22 CHIEF COMPLAINT: Abdominal pain HISTORY OF PRESENT ILLNESS: Patient postop day #5 status post diagnostic laparoscopy, exploratory laparotomy, ileocolectomy, open cholecystectomy and drainage of pelvic abscess. Patient reports her abdominal pain is controlled. She denies any nausea or vomiting. She is having flatus. No bowel movement yet. Currently on low fiber diet. Afebrile. WBC 8.45 Hgb 13 BLAISE drain 25 mL serosanguineous output PHYSICAL EXAM: VITAL SIGNS: Reviewed. GENERAL: Well-developed in no acute distress. ABDOMEN: Soft. Nondistended. Nontender. Prevana dressing intact NEUROLOGIC: Alert and oriented. Cranial nerves II through XII grossly intact. ASSESSMENT: 1. Acute appendicitis, 15 cm grossly large hydropic gallbladder, pelvic abscess, adhesions PLAN: - Continue low fiber diet -Encourage patient to ambulate -Encourage patient to use incentive spirometer -Follow up on path results -[place] added for oral pain med -Anticipate discharge tomorrow Physician Stripper [place] note has been reviewed by physician. Signing provider agrees with the documented findings, assessment, and plan of care. Objective - Vital Signs Vital signs: Vital Signs Temp 98.3 F 11/24/22 07:31 Pulse 67 11/24/22 07:31 Resp 18 11/24/22 07:31 BP 137/59 11/24/22 07:31 Pulse Ox 97 11/24/22 07:31 FiO2 Intake & Output 11/23/22 11/24/22 11/24/22 18:59 06:59 18:59 Intake Total 200 Output Total 40 25 Balance -40 175 Intake: Oral 200 Output: Drainage 40 25 Right Anterior Abdomen 40 25 Other: Voiding Method Toilet Toilet Toilet # Voids 1 2 - Labs CBC & Chem 7: 11/24/22 05:52 11/24/22 05:52 Labs: Abnormal Lab Results - Last 24 Hours (Table) 11/24/22 Range/Units 05:52 Anion Gap 12.70 H (4.00-12.00) mmol/L BUN 5.4 L (9.0-27.0) mg/dL Creatinine 0.3 L (0.6-1.5) mg/dL Calcium 8.4 L (8.7-10.3) mg/dL Microbiology - Last 24 Hours (Table) 11/18/22 21:00 Blood Culture - Final Blood 11/18/22 20:45 Blood Culture - Final Blood
--- NOTE | 2022-11-24 19:30 | P.PN ---
Subjective Progress Note Date: 11/24/22 - Reason for Consult Preoperative clearance, hyponatremia - History of Present Illness Patient presented with right-sided abdominal pain is undergoing cholecystectomy today MrDarlene was consulted for preoperative clearance patient is bit hyponatremic and is receiving IV fluids does have history of COPD continues to smoke half a pack of cigars per day which she is willing to quit patient does have leukocytosis. 11/20/2022 Patient is seen and evaluated in follow-up status post exploratory laparotomy with cholecystectomy and ileocolectomy with drainage of abscess in the pelvis as well as extensive lysis of adhesions. Patient being followed by infectious disease as well maintained on antibiotics. Patient does have prevana wound VAC in place with adequate suction and reports has been up and walking. Patient reports having some lower quadrant abdominal pain on the right otherwise pain is currently controlled on current regimen. Patient is afebrile and has a white count and is maintained on antibiotics. No reports of chest pain or shortness o f breath. Will add incentive spirometer patient remains nothing by mouth per surgery at this time with no significant bowel activity noted. Encouraged continued walking as tolerated. 11/21/2022 Patient is seen and evaluated in follow-up with no acute overnight issues noted. Patient reports pain is currently controlled and is status post open ileocolectomy for perforated appendicitis with abscess and open cholecystectomy for large hydropic gallbladder. Patient continues on nothing by mouth status with ice chips on occasion and there is some positive bowel sounds noted on exam and patient has been up and walking and is being advanced to clear liquids today per surgery. Patient with incentive spirometer at the bedside and encouraged to continue using at least 10 times every hour while awake. Patient is afebrile maintained on IV antibiotics with infectious disease following an denies any chest pain or shortness of breath. 11/22/2022 Patient is currently resting in bed. Awake alert and oriented x3. Abdominal pain is better. Patient is tolerating clear liquid diet. No bowel movement yet. Patient also encouraged on IV antibiotics now on Unasyn. No nausea or vomiting. No fever no chills. No cough or sputum production. Laboratory data showed WBC 9.3 hemoglobin 12.7 and platelets 300 sodium 137 potassium 3.6 chloride 104 bicarb is 24 BUN 15 and creatinine 0.35 and blood s ugar is 100. 11/23/2022 Patient is currently sitting in her recliner. Awake alert and oriented. No complaints of chest pain or shortness of breath. Patient states that he has been having increased leg swelling. Otherwise patient is tolerating oral diet. Abdominal pain is controlled and patient is taking Tylenol. Wound VAC is also in place. Patient is being currently IV antibiotics with Unasyn. Anaerobic cultures showed Endor with gram-negative bacilli and also wound culture showing E. coli. ID is on board. 11/24/2022 Patient is seen and evaluated in follow-up today currently sitting up in the chair just completed walking and has been walking multiple times. Patient continues with some lower extremity swelling and Meet wraps from the toes up to the knees reporting some improvement. Will give a dose of IV Lasix and follow- up on repeat labs in the a.m. Patient is maintained on IV antibiotics with infectious disease following an wound culture showing E. coli. Patient diet has been advanced per surgery and will increase this evening with low fiber. Patient is reporting gas with no bowel movement as of yet. Encouraged incentive spirometer at bedside at least 10 times every hour while awake. Patient tolerating diet with no reported nausea or vomiting. Patient denies any chest pain or shortness of breath. Review of systems: Constitutional: No reports of fatigue, fever, or chills Cardiovascular: No reports of chest pain or palpitations Respiratory: No reports of shortness of breath or cough GI: No reports of nausea, vomiting, or diarrhea, reports passing gas, no bowel movement yet : No reports of dysuria or retention Neurovascular: No reports of weakness , reports pain is improved in lower abdomen All medications have been reviewed PHYSICAL EXAMINATION: GENERAL: The patient is alert and oriented x3, not in any acute distress. Well developed, extremely thin built HEENT: Pupils are round and equally reacting to light. EOMI. No scleral icterus. No conjunctival pallor. Normocephalic, atraumatic. No pharyngeal erythema. No thyromegaly. CARDIOVASCULAR: S1 and S2 present. No murmurs, rubs, or gallops. PULMONARY: Chest is clear to auscultation, no wheezing or crackles. ABDOMEN: Soft, tender in right lower quadrant, nondistended, bowel sounds. No palpable organomegaly. MUSCULOSKELETAL: No joint swelling or deformity. EXTREMITIES: No cyanosis, clubbing, or pedal edema. NEUROLOGICAL: Gross neurological examination did not reveal any focal deficits. SKIN: No rashes. Assessment: -Abdominal pain, status post exploratory laparotomy with ileocolectomy and cholecystectomy due to perforated appendicitis and hydropic gallbladder -Continued ongoing nicotine dependence -Leukocytosis most likely secondary to assessment #1, resolved -Hypovolemic hyponatremia , improved -Bilateral lower extremity edema, secondary to volume overload from IV fluids. Discontinue IV fluids -COPD without any acute exacerbation -DVT prophylaxis: As per primary service -GI prophylaxis -Full code Plan: Patient is currently having diet advanced per surgery to low fiber and reports passing gas with no bowel movement as of yet Patient is drinking with no reported nausea or vomiting and will discontinue IV fluids Patient having some lower extremity edema most likely from volume overload and will give a dose of IV Lasix and continue Meet wrapping lower extremities from toes up to knees and instructed patient to elevate lower extremities while at rest Continue to encourage incentive spirometer and encourage the patient to continue using at least 10 times per hour while awake Patient is also being followed by infectious disease maintained on IV antibiotics and will continue area wound culture showing E. coli Encouraged increased activity as tolerated and continued walking frequently throughout the day Will follow-up on repeat labs in the a.m. recommend to replace electrolytes per protocol Possible discharge planning in 24 hours. Patient is medically stable once cleared by surgery We will continue to follow with surgery during hospitalization. Thank you kindly for this consultation. The impression and plan of care has been dictated by Ronda Lobo, Nurse Practitioner as directed. Dr. Merissa MD I have performed a history and examination and MDM of this patient, discussed the same with the dictator, and agree with the dictator's assessment and plan as written ,documented as a scribe. Based on total visit time, I have performed more than 50% of the visit. Objective - Vital Signs Vital signs: Vital Signs Temp 98.2 F 11/24/22 12:33 Pulse 70 11/24/22 12:33 Resp 18 11/24/22 12:33 BP 148/69 11/24/22 12:33 Pulse Ox 97 11/24/22 12:33 FiO2 Intake & Output 11/24/22 11/24/22 11/25/22 06:59 18:59 06:59 Intake Total 200 Output Total 25 Balance 175 Weight 53.07 kg Intake: Oral 200 Output: Drainage 25 Right Anterior Abdomen 25 Other: Voiding Method Toilet Toilet # Voids 2 3 - Labs CBC & Chem 7: 11/24/22 05:52 10/16/23 05:52 Labs: Abnormal Lab Results - Last 24 Hours (Table) 11/24/22 Range/Units 05:52 Anion Gap 12.70 H (4.00-12.00) mmol/L BUN 5.4 L (9.0-27.0) mg/dL Creatinine 0.3 L (0.6-1.5) mg/dL Calcium 8.4 L (8.7-10.3) mg/dL Microbiology - Last 24 Hours (Table) 11/18/22 21:00 Blood Culture - Final Blood 11/18/22 20:45 Blood Culture - Final Blood
[2022-11-24] MEDS: SODIUM CHLORIDE 0.9% 1,000 ML IV SCH (22:54)
[2022-11-25] MEDS: AMPICILLIN-SULBACTAM 3 GM in SODIUM CHLORIDE 0.9% 100 ML IVPB SCH ×3 (00:04→12:50)
[2022-11-25] MEDS: HYDROcodone/APAP 5-325MG 1 EACH TAB PO PRN ×2 (06:03→13:24)
[2022-11-25] MEDS: IPRATROPIUM 0.5 MG/2.5 ML NEBU INHALATION SCH ×2 (08:05→11:09)
[2022-11-25] MEDS: SYMBICORT 80-4.5 MCG INHALER INHALATION SCH (08:05)
[2022-11-25] MEDS: ENOXAPARIN 40 MG/0.4 ML SYRINGE SQ SCH (09:17)
[2022-11-25] MEDS: PANTOPRAZOLE 40 MG/10 ML VIAL IV SCH (09:17)
--- NOTE | 2022-11-25 12:52 | P.DS ---
Providers Date of admission: 11/20/22 10:19 Expected date of discharge: 11/25/22 Attending physician: Saul Graves Consults: 11/19/22 10:58 Consult Physician Routine Consulting Provider: Ashanti Garcia Consult Reason/Comments: medical management Do you want consulting provider notified?: Yes 11/19/22 16:12 Consult Physician Routine Consulting Provider: Silvio Veliz Consult Reason/Comments: Perforated appendicitis with abscess Do you want consulting provider notified?: Yes Primary care physician: Hillary Natarajan Hospital Course: Discharge diagnosis 1. 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 Her computed tomography scan reports correlate for nonspecific small bowel enteritis. Nonvisualization of the appendix. Gallbladder hydrops. Patient had elevated white count. She is status post diagnostic laparoscopy, exploratory laparotomy, ileocolectomy, open cholecystectomy and drainage of pelvic abscess. Patient tolerated surgery well. Her pain is controlled. She is tolerating diet. She's having bowel movements. She's afebrile. She has been up and ambulating. Patient to follow up with oncology outpatient. She is stable for discharge. Please refer to chart for any further details. Physician President And Ceo note has been reviewed by physician. Signing provider agrees with the documented findings, assessment, and plan of care. Patient Condition at Discharge: Stable Plan - Discharge Summary Discharge Rx Participant: No New Discharge Prescriptions: New Amoxic-Pot Clav 875-125Mg [Augmentin 875-125] 1 tab PO Q12HR 10 Days #20 tab Acetaminophen Tab [Tylenol Tab] 650 mg PO Q4H PRN #30 tablet PRN Reason: Pain Ibuprofen [Motrin] 600 mg PO Q8HR PRN #30 tab PRN Reason: Pain oxyCODONE HCL [OxyIR] 5 mg PO Q6H PRN 3 Days #12 tab PRN Reason: Pain Continue Hyoscyamine Sulfate [Levsin-Sl] 0.125 mg SL Q4H PRN PRN Reason: Abdominal Cramping Alendronate Sodium [Fosamax] 70 mg PO MO Fluticasone/Umeclidin/Vilanter [Trelegy Ellipta 100-62.5-25] 1 puff INHALATION RT-DAILY Ondansetron Odt [Zofran ODT] 4 mg PO TID PRN PRN Reason: Nausea Discontinued Sulfamethox-Tmp 800-160Mg [Bactrim DS 800-160 mg] 1 tab PO BID Naproxen Sodium [Aleve] 220 - 440 mg PO Q8H PRN PRN Reason: Pain Discharge Medication List Alendronate Sodium [Fosamax] 70 mg PO MO 11/18/22 [History] Fluticasone/Umeclidin/Vilanter [Trelegy Ellipta 100-62.5-25] 1 puff INHALATION RT-DAILY 11/18/22 [History] Hyoscyamine Sulfate [Levsin-Sl] 0.125 mg SL Q4H PRN 11/18/22 [History] Ondansetron Odt [Zofran ODT] 4 mg PO TID PRN 11/18/22 [History] Acetaminophen Tab [Tylenol Tab] 650 mg PO Q4H PRN #30 tablet 11/25/22 [Rx] Amoxic-Pot Clav 875-125Mg [Augmentin 875-125] 1 tab PO Q12HR 10 Days #20 tab 11/25/22 [Rx] Ibuprofen [Motrin] 600 mg PO Q8HR PRN #30 tab 11/25/22 [Rx] oxyCODONE HCL [OxyIR] 5 mg PO Q6H PRN 3 Days #12 tab 11/25/22 [Rx] Follow up Appointment(s)/Referral(s): Doroteo Mercedes [STAFF PHYSICIAN] - 1 Week Hillary Natarajan DO [Primary Care Provider] - 1-2 days Saul Graves MD [STAFF PHYSICIAN] - 1 Week Patient Instructions/Handouts: *Surgery [facility] - Scopalamine Patch Instructions Activity/Diet/Wound Care/Special Instructions: No driving while taking OxyIR No lifting over 10 pounds Shower daily. No soaking or tub baths for 2 weeks Very light activity until you are reevaluated at your follow up appointment with your surgeon Keep a log of BLAISE drain output and bring with you to your follow-up appointment Milk/strip drains 2-3 times a day Discharge Disposition: HOME SELF-CARE
--- NOTE | 2022-11-25 13:12 | P.PN ---
Subjective Progress Note Date: 11/23/22 Principal diagnosis: Appendicitis with abscess and cholecystitis Patient is a 67-year-old female with a past medical history significant for COPD current everyday smoker presenting to the hospital yesterday for evaluation of right-sided abdominal pain, the patient is status post laparotomy with right ileocolectomy and cholecystectomy drainage of the pelvic abscess On today's evaluation that is 11/23/2022, the patient is afebrile the patient is breathing comfortably on room air, the patient denies chest pain and no significant cough, patient denies abdominal pain pt has no bowel movement but passing gas, patient complaining of mostly lower extremity swelling Patient did have a white count of 9.3, creatinine 0.35 as of yesterday Objective - Vital Signs Vital signs: Vital Signs Temp 98.4 F 11/23/22 14:00 Pulse 68 11/23/22 14:00 Resp 16 11/23/22 14:00 BP 164/70 11/23/22 14:00 Pulse Ox 94 L 11/23/22 14:00 FiO2 Intake & Output 11/22/22 11/23/22 11/23/22 18:59 06:59 18:59 Intake Total 118 Output Total 50 40 Balance 118 -50 -40 Intake: Oral 118 Output: Drainage 50 40 Right Anterior Abdomen 50 40 Other: Voiding Method Toilet Toilet Toilet # Voids 4 2 1 - Exam GENERAL DESCRIPTION: An elderly female lying in bed in no distress RESPIRATORY SYSTEM: Unlabored breathing , decreased breath sounds at bases HEART: S1 S2 regular rate and rhythm , ABDOMEN: Soft , no tenderness EXTREMITIES: No edema feet - Labs CBC & Chem 7: 11/24/22 05:52 11/24/22 05:52 Labs: Microbiology - Last 24 Hours (Table) 11/19/22 15:53 Anaerobic Culture - Final Other - Other Anaerobic Gm Negative Bacilli Assessment and Plan (1) Cholecystitis Current Visit: Yes Status: Acute Code(s): K81.9 - CHOLECYSTITIS, UNSPECIFIED SNOMED Code(s): 86470290 (2) Leukocytosis Current Visit: Yes Status: Acute Code(s): D72.829 - ELEVATED WHITE BLOOD CELL COUNT, UNSPECIFIED SNOMED Code(s): 857415454 (3) Perforated appendicitis Current Visit: Yes Status: Acute Code(s): K35.32 - AC APPENDICITIS W PERF, LOC PERITONITIS, & GANGR, W/O ABSCS SNOMED Code(s): 84155868 Plan: 1patient was in the hospital abdominal pain right-sided in this patient who is status post laparotomy with evidence of perforated appendicitis status post ileocolectomy and also noticed to have significant inflammation of the gallbladder status post cholecystectomy likely on exam need to cover for enteric gram-negative both aerobes anaerobes patient has not been on antibiotics in the recent past more likely sensitive pathogen 2penicillin allergy as a child however subsequently the patient has taken amoxicillin without any problem confirmed by the sister the bedside, clinically doubt true penicillin ALLERGY 3abscess cultures gowning e.coli that is sensitive to unasyn 4- the patient seemed to have show some clinical improvement and will continue with Unasyn 3 g every 6 hours while inpatient Dictation was produced using [employer] dictation software. please excuse any grammatical, word or spelling errors.
--- NOTE | 2022-11-25 13:13 | P.PN ---
Subjective Progress Note Date: 11/24/22 Principal diagnosis: Appendicitis with abscess and cholecystitis Patient is a 67-year-old female with a past medical history significant for COPD current everyday smoker presenting to the hospital yesterday for evaluation of right-sided abdominal pain, the patient is status post laparotomy with right ileocolectomy and cholecystectomy drainage of the pelvic abscess On today's evaluation that is 11/24/2022, the patient remains to be afebrile, the patient is breathing comfortably on room air without the need for supplemental oxygen and no shortness of breath, the patient denies having any chest pain or cough, patient denies nausea/vomiting /diarrhea and no abdominal pain did have a small bowel movement still complaining of lower extremity swelling, Patient did have a white count of 8.45, creatinine 0.3 Objective - Vital Signs Vital signs: Vital Signs Temp 98.2 F 11/24/22 12:33 Pulse 70 11/24/22 12:33 Resp 18 11/24/22 12:33 BP 148/69 11/24/22 12:33 Pulse Ox 97 11/24/22 12:33 FiO2 Intake & Output 11/23/22 11/24/22 11/24/22 18:59 06:59 18:59 Intake Total 200 Output Total 40 25 Balance -40 175 Intake: Oral 200 Output: Drainage 40 25 Right Anterior Abdomen 40 25 Other: Voiding Method Toilet Toilet Toilet # Voids 1 2 3 - Exam GENERAL DESCRIPTION: An elderly female lying in bed in no distress RESPIRATORY SYSTEM: Unlabored breathing , decreased breath sounds at bases HEART: S1 S2 regular rate and rhythm , ABDOMEN: Soft , no tenderness EXTREMITIES: 3+ edema feet - Labs CBC & Chem 7: 11/24/22 05:52 11/24/22 05:52 Labs: Abnormal Lab Results - Last 24 Hours (Table) 11/24/22 Range/Units 05:52 Anion Gap 12.70 H (4.00-12.00) mmol/L BUN 5.4 L (9.0-27.0) mg/dL Creatinine 0.3 L (0.6-1.5) mg/dL Calcium 8.4 L (8.7-10.3) mg/dL Microbiology - Last 24 Hours (Table) 11/18/22 21:00 Blood Culture - Final Blood 11/18/22 20:45 Blood Culture - Final Blood Assessment and Plan (1) Cholecystitis Current Visit: Yes Status: Acute Code(s): K81.9 - CHOLECYSTITIS, UNSPECIFIED SNOMED Code(s): 08367652 (2) Leukocytosis Current Visit: Yes Status: Acute Code(s): D72.829 - ELEVATED WHITE BLOOD CELL COUNT, UNSPECIFIED SNOMED Code(s): 689487363 (3) Perforated appendicitis Current Visit: Yes Status: Acute Code(s): K35.32 - AC APPENDICITIS W PERF, LOC PERITONITIS, & GANGR, W/O ABSCS SNOMED Code(s): 96502302 Plan: 1patient was in the hospital abdominal pain right-sided in this patient who is status post laparotomy with evidence of perforated appendicitis status post ileocolectomy and also noticed to have significant inflammation of the gallbladder status post cholecystectomy likely on exam need to cover for enteric gram-negative both aerobes anaerobes patient has not been on antibiotics in the recent past more likely sensitive pathogen 2penicillin allergy as a child however subsequently the patient has taken am oxicillin without any problem confirmed by the sister the bedside, clinically doubt true penicillin ALLERGY 3abscess cultures gowning e.coli that is sensitive to unasyn 4- the patient has shown clinical improvement and will continue with Unasyn 3 g every 6 hours while inpatient and transitioned oral antibiotics on discharge Dictation was produced using [employer] dictation software. please excuse any grammatical, word or spelling errors. Time with Patient: Less than 30
--- NOTE | 2022-11-25 13:15 | P.PN ---
Subjective Progress Note Date: 11/25/22 Principal diagnosis: Appendicitis with abscess and cholecystitis Patient is a 67-year-old female with a past medical history significant for COPD current everyday smoker presenting to the hospital yesterday for evaluation of right-sided abdominal pain, the patient is status post laparotomy with right ileocolectomy and cholecystectomy drainage of the pelvic abscess On today's evaluation that is 11/25/2022, the patient continues to be afebrile the patient is breathing comfortably on room air, the patient denies chest pain, shortness of breath or cough, patient denies abdominal pain, no nausea/vomiting and no diarrhea , the patient did have a small bowel movement and lower extremity swelling has decreased in intensity, Patient did have a white count of 8.45, creatinine 0.3 as of 11/24/2022 Objective - Vital Signs Vital signs: Vital Signs Temp 99.5 F 11/25/22 06:30 Pulse 66 11/25/22 06:30 Resp 14 11/25/22 06:30 BP 122/63 11/25/22 06:30 Pulse Ox 96 11/25/22 06:30 FiO2 Intake & Output 11/24/22 11/25/22 11/25/22 18:59 06:59 18:59 Intake Total 118 Output Total 20 Balance 98 Weight 53.07 kg Intake: Oral 118 Output: Drainage 20 Right Anterior Abdomen 20 Other: Voiding Method Toilet Toilet # Voids 3 2 - Exam GENERAL DESCRIPTION: An elderly female lying in bed in no distress RESPIRATORY SYSTEM: Unlabored breathing , decreased breath sounds at bases HEART: S1 S2 regular rate and rhythm , ABDOMEN: Soft , no tenderness EXTREMITIES: 3+ edema feet - Labs CBC & Chem 7: 11/24/22 05:52 11/24/22 05:52 Assessment and Plan (1) Cholecystitis Current Visit: Yes Status: Acute Code(s): K81.9 - CHOLECYSTITIS, UNSPECIFIED SNOMED Code(s): 31405203 (2) Leukocytosis Current Visit: Yes Status: Acute Code(s): D72.829 - ELEVATED WHITE BLOOD CELL COUNT, UNSPECIFIED SNOMED Code(s): 346025668 (3) Perforated appendicitis Current Visit: Yes Status: Acute Code(s): K35.32 - AC APPENDICITIS W PERF, LOC PERITONITIS, & GANGR, W/O ABSCS SNOMED Code(s): 96528441 Plan: 1patient was in the hospital abdominal pain right-sided in this patient who is status post laparotomy with evidence of perforated appendicitis status post ileocolectomy and also noticed to have significant inflammation of the gallbladder status post cholecystectomy likely on exam need to cover for enteric gram-negative both aerobes anaerobes patient has not been on antibiotics in the recent past more likely sensitive pathogen 2penicillin allergy as a child however subsequently the patient has taken amoxicillin without any problem confirmed by the sister the bedside, clinically doubt true penicillin ALLERGY 3abscess cultures gowning e.coli that is sensitive to unasyn 4- the patient has shown clinical improvement, plan is to finish therapy with oral Augmentin 875 twice a day for 10 days discussed with the surgical MEDICAL OFFICE ASSISTANT working on discharge Dictation was produced using [employer] dictation software. please excuse any grammatical, word or spelling errors. Time with Patient: Less than 30
[2022-11-25 13:34] VITALS: BP 118/63; PULSE 68; RESP 18; TEMP 98.5
--- NOTE | 2022-11-25 15:42 | P.PN ---
Subjective Progress Note Date: 11/25/22 - Reason for Consult Preoperative clearance, hyponatremia - History of Present Illness Patient presented with right-sided abdominal pain is undergoing cholecystectomy today MrDarlene was consulted for preoperative clearance patient is bit hyponatremic and is receiving IV fluids does have history of COPD continues to smoke half a pack of cigars per day which she is willing to quit patient does have leukocytosis. 11/20/2022 Patient is seen and evaluated in follow-up status post exploratory laparotomy with cholecystectomy and ileocolectomy with drainage of abscess in the pelvis as well as extensive lysis of adhesions. Patient being followed by infectious disease as well maintained on antibiotics. Patient does have prevana wound VAC in place with adequate suction and reports has been up and walking. Patient reports having some lower quadrant abdominal pain on the right otherwise pain is currently controlled on current regimen. Patient is afebrile and has a white count and is maintained on antibiotics. No reports of chest pain or shortness o f breath. Will add incentive spirometer patient remains nothing by mouth per surgery at this time with no significant bowel activity noted. Encouraged continued walking as tolerated. 11/21/2022 Patient is seen and evaluated in follow-up with no acute overnight issues noted. Patient reports pain is currently controlled and is status post open ileocolectomy for perforated appendicitis with abscess and open cholecystectomy for large hydropic gallbladder. Patient continues on nothing by mouth status with ice chips on occasion and there is some positive bowel sounds noted on exam and patient has been up and walking and is being advanced to clear liquids today per surgery. Patient with incentive spirometer at the bedside and encouraged to continue using at least 10 times every hour while awake. Patient is afebrile maintained on IV antibiotics with infectious disease following an denies any chest pain or shortness of breath. 11/22/2022 Patient is currently resting in bed. Awake alert and oriented x3. Abdominal pain is better. Patient is tolerating clear liquid diet. No bowel movement yet. Patient also encouraged on IV antibiotics now on Unasyn. No nausea or vomiting. No fever no chills. No cough or sputum production. Laboratory data showed WBC 9.3 hemoglobin 12.7 and platelets 300 sodium 137 potassium 3.6 chloride 104 bicarb is 24 BUN 15 and creatinine 0.35 and blood s ugar is 100. 11/23/2022 Patient is currently sitting in her recliner. Awake alert and oriented. No complaints of chest pain or shortness of breath. Patient states that he has been having increased leg swelling. Otherwise patient is tolerating oral diet. Abdominal pain is controlled and patient is taking Tylenol. Wound VAC is also in place. Patient is being currently IV antibiotics with Unasyn. Anaerobic cultures showed Endor with gram-negative bacilli and also wound culture showing E. coli. ID is on board. 11/24/2022 Patient is seen and evaluated in follow-up today currently sitting up in the chair just completed walking and has been walking multiple times. Patient continues with some lower extremity swelling and Meet wraps from the toes up to the knees reporting some improvement. Will give a dose of IV Lasix and follow- up on repeat labs in the a.m. Patient is maintained on IV antibiotics with infectious disease following an wound culture showing E. coli. Patient diet has been advanced per surgery and will increase this evening with low fiber. Patient is reporting gas with no bowel movement as of yet. Encouraged incentive spirometer at bedside at least 10 times every hour while awake. Patient tolerating diet with no reported nausea or vomiting. Patient denies any chest pain or shortness of breath. 11/25/2022 Patient seen and evaluated in follow-up this morning showing significant improvement of bilateral lower extremities status post continuing Meet wraps from the toes up to the knees as well as given a dose of IV Lasix yesterday. Patient is tolerating advanced diet and surgery discussing possible discharge as patient did have a bowel movement. Patient is tolerating with no reported nausea or vomiting and has been up and walking frequently. Patient to continue with incentive spirometer at least 10 times every hour while awake. Patient is medically stable for discharge today. Strongly encouraged continued smoking cessation on discharge. Review of systems: Constitutional: No reports of fatigue, fever, or chills Cardiovascular: No reports of chest pain or palpitations Respiratory: No reports of shortness of breath or cough GI: No reports of nausea, no vomiting, or diarrhea, reports passing gas, patient did have a bowel movement : No reports of dysuria or retention Neurovascular: No reports of weakness , reports pain is improved in lower abdomen All medications have been reviewed PHYSICAL EXAMINATION: GENERAL: The patient is alert and oriented x3, not in any acute distress. Well developed, extremely thin built HEENT: Pupils are round and equally reacting to light. EOMI. No scleral icterus. No conjunctival pallor. Normocephalic, atraumatic. No pharyngeal erythema. No thyromegaly. CARDIOVASCULAR: S1 and S2 present. No murmurs, rubs, or gallops. PULMONARY: Chest is clear to auscultation, no wheezing or crackles. ABDOMEN: Soft, tender in right lower quadrant, nondistended, bowel sounds. No palpable organomegaly. MUSCULOSKELETAL: No joint swelling or deformity. EXTREMITIES: No cyanosis, clubbing, or pedal edema. Bilateral lower extremity swelling improved nonpitting NEUROLOGICAL: Gross neurological examination did not reveal any focal deficits. SKIN: No rashes. Assessment: -Abdominal pain, status post exploratory laparotomy with ileocolectomy and cholecystectomy due to perforated appendicitis and hydropic gallbladder -Continued ongoing nicotine dependence -Leukocytosis most likely secondary to assessment #1, resolved -Hypovolemic hyponatremia , improved -Bilateral lower extremity edema, secondary to volume overload from IV fluids. Discontinue IV fluids, improved -COPD without any acute exacerbation -DVT prophylaxis: As per primary service -GI prophylaxis -Full code Plan: Patient is currently having diet advanced per surgery to low fiber and reports passing gas and did have a bowel movement this morning Patient is drinking with no reported nausea or vomiting Patient did have some lower extremity edema most likely from volume overload and significantly improved after a dose of Lasix. Encourage the patient continue Meet wraps from the toes up to the knees and elevating while at rest Continue to encourage incentive spirometer and encourage the patient to continue using at least 10 times per hour while awake Patient encouraged to continue walking and increasing activity as tolerated Patient is medically stable for discharge today We will continue to follow with surgery during hospitalization. Thank you kindly for this consultation. Strongly encouraged complete smoking cessation The impression and plan of care has been dictated by Ronda Lobo, Nurse Practitioner as directed. Dr. Merissa MD I have performed a history and examination and MDM of this patient, discussed the same with the dictator, and agree with the dictator's assessment and plan as written ,documented as a scribe. Based on total visit time, I have performed more than 50% of the visit. Objective - Vital Signs Vital signs: Vital Signs Temp 98.5 F 11/25/22 12:34 Pulse 68 11/25/22 12:34 Resp 18 11/25/22 12:34 BP 118/63 11/25/22 12:34 Pulse Ox 97 11/25/22 12:34 FiO2 Intake & Output 11/24/22 11/25/22 11/25/22 18:59 06:59 18:59 Intake Total 118 Output Total 20 Balance 98 Weight 53.07 kg Intake: Oral 118 Output: Drainage 20 Right Anterior Abdomen 20 Other: Voiding Method Toilet Toilet # Voids 3 2 - Labs CBC & Chem 7: 11/24/22 05:52 11/24/22 05:52
== END 2022-11-25 15:06 | disposition home or self-care (01) | DRG 329 ==
LOC: EC 15:19 → 1SOBS 20:12 → 6NMEDSUR 11-19 15:53 → 5NMEDONC 11-19 16:23 → OBSVTOIN 11-20 10:19
PROVIDERS: ADMIT Surgery; ATTEND Surgery
PROC: 0DTJ0ZZ Resection of Appendix, Open Approach (ICD-10-PCS; 2022-11-19)
PROC: 0DTB0ZZ Resection of Ileum, Open Approach (ICD-10-PCS; 2022-11-19)
PROC: 0WJG4ZZ Inspection of Peritoneal Cavity, Percutaneous Endoscopic Approach (ICD-10-PCS; 2022-11-19)
PROC: 0FT40ZZ Resection of Gallbladder, Open Approach (ICD-10-PCS; 2022-11-19)
PROC: 0W9J00Z Drainage of Pelvic Cavity with Drainage Device, Open Approach (ICD-10-PCS; 2022-11-19)
PROC: 0DTF0ZZ Resection of Right Large Intestine, Open Approach (ICD-10-PCS; principal; 2022-11-19 11:55)
DX: C18.1 Malignant neoplasm of appendix (principal); K65.1 Peritoneal abscess; E87.1 Hypo-osmolality and hyponatremia; K82.1 Hydrops of gallbladder; Z53.31 Laparoscopic surgical procedure converted to open procedure; E86.1 Hypovolemia; E87.70 Fluid overload, unspecified; F17.210 Nicotine dependence, cigarettes, uncomplicated; J44.9 Chronic obstructive pulmonary disease, unspecified; Z71.3 Dietary counseling and surveillance; K52.9 Noninfective gastroenteritis and colitis, unspecified; Z88.0 Allergy status to penicillin; Z79.899 Other long term (current) drug therapy; Z71.6 Tobacco abuse counseling
CPT/HCPCS: 36415; 74018; 74176; 74177; 80048; 80053; 81001; 83605; 83735; 85025; 87040; 87070; 87075; 87077; 87186; 87205; 88304; 88309; 88342; 96365; 96375; 99285

== ENCOUNTER → 2022-12-16 | Outpatient (CLI) | payer BC ==
[2022-12-16 12:02] LABS: African American GFR (CKD) >90 (>60 ml/min/1.73 sqM); Blood Urea Nitrogen 11 mg/dL (7-17); Non-African American GFR(CKD) >90 (>60 ml/min/1.73 sqM)
--- NOTE | 2022-12-17 21:44 | CT ---
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 hx of COPD. TECHNIQUE: Contiguous axial scanning of the chest after the administration of 100 mL of Isovue 300. Coronal/sagittal reconstructions performed. CT DLP: 123.1mGycm. Automatic exposure control utilized for a dose reduction. FINDINGS: The heart is normal size without pericardial effusion. Aorta normal caliber with a minimal atherosclerotic arch calcifications and conventional arch vessel branching anatomy. No thoracic lymphadenopathy by CT size criteria. Mild diffuse bronchial wall thickening. Moderate centrilobular emphysematous changes. Minimal biapica l pleural parenchymal scarring. 6 mm left apical pulmonary nodule that may reflect parenchymal scarring but should be reassessed at f ollow-up, axial image 4. No consolidation or pleural effusion. Visualized upper abdomen shows nonspecific small hypodensity in the lateral right hepatic dome measur ing 7 mm. Unchanged from 11/18/2022, likely a tiny cyst. Bones: Slightly accentuated midthoracic kyphosis with mild degenerative disc disease. No osseous dest ructive process. IMPRESSION: 1. COPD with moderate emphysema. 2. A 6 mm left apical pulmonary nodule is nonspecific and may relate to pleural parenchymal scarring. Three-month follow-up CT to reassess.
== END | disposition home or self-care (01) ==
LOC: RADCTMAIN 11:18
PROVIDERS: ATTEND Internal Medicine
DX: C18.1 Malignant neoplasm of appendix (principal); J43.9 Emphysema, unspecified; R91.1 Solitary pulmonary nodule
CPT/HCPCS: 82565; 84520; 71260; 36415; Q9967

== ENCOUNTER → 2023-04-24 | Outpatient (CLI) | payer BC ==
[~2023-04-24] MED LIST changes: -LACTATED RINGERS 1,000 ML IV SCH; -LIDOCAINE 1% (10MG/ML) FOR IV START INTRADERMA PRN; +REGADENOSON 0.4 MG/5 ML SYRINGE IV PRN
--- NOTE | 2023-04-24 17:59 | CA ---
Lexiscan Nuclear Stress Test Report Name: Kellen Brar Exam Date: 04/24/2023 10:56 Exam Location: [place] [facility] Stress Ht (in): Wt (lb): BSA: Ordering Phys: Hillary Natarajan DO Referring Phys: L[place],, Technologist: Eduardo Albert Age: 67 Gender: F : 1955 Procedure CPT: Indications: R06.02 SOB ICD-10 Codes: Patient History: KAYLYN, FAMILY HX, TOB, COPD Medications: SEE LIST Meds past 24 hrs: Pretest Chest Pain: STRESS TEST Lexiscan Protocol Exercise Duration (min:sec): 02:[address] Depressions (mm): Angina Score: Rosas Score: Resting HR (bpm): 56 Peak HR (bpm): 124 Resting BP (mmHg): 138 / 71 Peak BP (mmHg): 147 / 74 MPHR: 155 Target HR: 132 % MPHR: 80 METS: 1.0 Total Dose: Peak Dose: Atropine: Double Product: 55224 BP Response: Stress Termination: END OF DOSE Stress Symptoms: No chest pain or symptoms Stress Summary: ECG ANALYSIS Resting ECG: Stress ECG: CONCLUSIONS Nondiagnostic stress testing Dr. Musa Hicks MD (Electronically Signed) Final Date: 24 April 2023 17:58
--- NOTE | 2023-04-27 15:14 | NM ---
EXAMINATION TYPE: NM stress lexiscan cardiolite DATE OF EXAM: 04/24/2023 COMPARISON: NONE CLINICAL INDICATION: Female, 67 years old with history of R06.02 SOB; TECHNIQUE: After the intravenous administration of 9.4 mCi Tc 99m Sestamibi - Cardiolite resting SPE CT images acquired 45 minutes post injection. The patient received 0.4mg Lexiscan, 25.4 mCi Tc 99m Sestamibi - Stress images obtained [address] injection FINDINGS: Review of stress and rest SPECT images demonstrates a small area of reversibility along the inferior apical wall. Gated analysis shows normal wall motion with an estimated left ventricular ejection frac tion of 64 %. TID is calculated at 1.21. IMPRESSION: 1. Unable to exclude a small area of reversibility along the inferior apical wall. There is some limi tation due to adjacent GI activity. 2. In addition, the transient ischemic dilatation ratio is increased at 1.21. This can be seen in the setting of multivessel, global inducible ischemia. Further evaluation as clinically indicated.
== END | disposition home or self-care (01) ==
LOC: RADNMMAIN 08:27
PROVIDERS: ATTEND Family Medicine
DX: R06.02 Shortness of breath (principal); J44.9 Chronic obstructive pulmonary disease, unspecified
CPT/HCPCS: 93017; 78452; A9500; J2785

== ENCOUNTER → 2023-04-30 | Outpatient (CLI) | payer BC ==
[2023-04-30 16:07] LABS: ALT 15 U/L (8-44); AST 20 U/L (13-35); Albumin 4.3 g/dL (3.8-4.9); Albumin/Globulin Ratio 1.59 Ratio (1.60-3.17); Alkaline Phosphatase 96 U/L (41-126); BUN/Creat Ratio 11.33 Ratio (12.00-20.00); Blood Urea Nitrogen 6.8 mg/dL (9.0-27.0); Calcium 9.7 mg/dL (8.7-10.3); Carbon Dioxide 29.7 mmol/L (21.6-31.8); Chloride 104 mmol/L (96-109); Globulin 2.7 g/dL (1.6-3.3); Glucose 91 mg/dL (70-110); Potassium 3.8 mmol/L (3.5-5.5); Sodium 145 mmol/L (135-145); Total Bilirubin 0.3 mg/dL (0.3-1.2)
[2023-04-30 16:30] LABS: HGB 14.1 g/dL (12.0-15.0); MCH 33.7 pg (27.0-32.0); MCV 105.3 FL (80.0-97.0); NRBC Per 100 WBC 0 X 10*3/uL (0.00-0.01); Platelet Count 275 X 10*3/uL (140-440); RBC 4.18 X 10*6/uL (4.10-5.20); RDW 14.6 % (11.5-14.5); WBC 5.97 X 10*3/uL (4.50-10.00)
== END | disposition home or self-care (01) ==
LOC: LABWHC1 09:48
PROVIDERS: ATTEND Internal Medicine Cardiovascular Disease
DX: Z01.812 Encounter for preprocedural laboratory examination (principal)
CPT/HCPCS: 36415; 80053; 85027

== ENCOUNTER → 2023-05-04 | Day surgery (SDC) | payer BC ==
[~2023-05-04] MED LIST changes: +ALPRAZolam 0.25 MG TAB PO PRN; +ALPRAZolam 0.5 MG TAB PO PRN; +ASPIRIN 325 MG TAB PO STA; +ATORVASTATIN 80 MG TAB PO STA; +HEPARIN SODIUM 1,000 UN/ML (10ML VL) ONE; +HEPARIN SODIUM,PORCINE (1 ML) 2,500 UNIT in SODIUM CHLORIDE 0.9% 250 ML IRRIGATION PRN; +HEPARIN SODIUM,PORCINE 10,000 UNIT in SODIUM CHLORIDE 0.9% 1,000 ML IRRIGATION PRN; +LIDOCAINE 1% INJ 10MG/ML (20 ML MDV) ONE; +NITROGLYCERIN SL TABS 0.4 MG TAB SUBLINGUAL PRN; -REGADENOSON 0.4 MG/5 ML SYRINGE IV PRN; +SODIUM CHLORIDE 0.9% 1,000 ML in EMPTY BAG 1 BAG IV SCH; +VERAPAMIL 2.5 MG/ML 2 ML AMP ONE; +fentaNYL (PF) 50 MCG/ML 2 ML AMP ONE
[2023-05-04 10:56] VITALS: RESP 16; TEMP 96.9
[2023-05-04] MEDS: SODIUM CHLORIDE 0.9% 1,000 ML IV ONE (11:25)
[2023-05-04] MEDS: LIDOCAINE 1% INJ 10MG/ML (5 ML VIAL-PF) SQ ONE (11:50)
[2023-05-04] MEDS: MIDAZOLAM 2 MG/2 ML VIAL IVP ONE (11:50)
[2023-05-04] MEDS: fentaNYL (PF) 50 MCG/ML 2 ML AMP IVP ONE (11:53)
[2023-05-04] MEDS: VERAPAMIL SYRINGE (5 MG/10 ML) INTRAARTER ONE (11:57)
[2023-05-04] MEDS: HEPARIN SODIUM 1,000 UN/ML (10ML VL) IVP ONE (11:59)
[2023-05-04] MEDS: IOPAMIDOL-370 100ML BTL INJ ONE (12:09)
[2023-05-04 13:58] VITALS: PULSE 62
--- NOTE | 2023-05-04 14:06 | LTR ---
Dear Hillary: I performed cardiac catheterization on Kellen Brar. A detailed catheterization note is enclosed for your records. She was referred to us because of an abnormal stress test as part of preop cardiac evaluation. Her cardiac catheterization shows normal coronaries and the stress test is a false-positive stress test. From cardiac standpoint, she can safely proceed with the abdominal surgery. Thank you for giving me the privilege of participating in the care of this pleasant lady. MMFRED / IJN: [id number] /
--- NOTE | 2023-05-04 14:06 | CC ---
CARDIAC CATHETERIZATION REPORT INDICATION: Abnormal stress test. PROCEDURE NOTE: After obtaining informed consent, left heart catheterization and coronary angiogram were performed via the right radial artery using standard Adrian catheters. The patient tolerated the procedure well without any obvious immediate complications, received moderate conscious sedation. Total sedation time was 15 minutes. Right radial artery access was obtained using Seldinger technique. A 6-Australian sheath was placed. Catheters and wires were floated into the ascending aorta under fluoroscopic guidance. She received verapamil and heparin per protocol. FINDINGS: 1. HEMODYNAMICS: Left ventricular end-diastolic pressure is 8 to 10 mm. There is no significant gradient across the aortic valve. 2. LEFT VENTRICULOGRAM: Left ventriculogram is not performed. 3. ANGIOGRAPHIC DATA: a.Right coronary artery: Right coronary artery is a large dominant vessel and is free of significant stenosis. b.Left main coronary artery is a short size vessel and is free of disease, divides into left anterior descending coronary artery and circumflex coronary artery. LAD and its branches, circumflex coronary artery and its branches are free of significant stenosis. CONCLUSIONS: 1. Normal coronary arteries. 2. Normal left ventricular end-diastolic pressure. PLAN: The patient's stress test is a false-positive stress test and she can now proceed with the abdominal surgery that she was scheduled to undergo at [facility]. MMODL / IJN: [id number] /
[2023-05-04 17:58] VITALS: BP 150/73
== END ==
LOC: CATHCVL 10:04
PROVIDERS: ATTEND Internal Medicine Cardiovascular Disease
DX: I25.10 Atherosclerotic heart disease of native coronary artery without angina pectoris (principal); J44.9 Chronic obstructive pulmonary disease, unspecified; M19.90 Unspecified osteoarthritis, unspecified site; Z90.710 Acquired absence of both cervix and uterus; Z79.899 Other long term (current) drug therapy
CPT/HCPCS: 93458; J2250; J2001; J3010; J1644; Q9967

== ENCOUNTER → 2023-09-24 | Outpatient (CLI) | payer BC ==
--- NOTE | 2023-10-18 09:18 | CT ---
Site ID synapse default Patient Kellen Brar ID [id number] 1955 Age/Gender: 68Y, F Order # N/A Procedure CT ChestAbdPelvis w con Date 09/24/2023 11:50:00 AM EXAMINATION TYPE: CT ChestAbdPelvis w con CT DLP: 523.40 mGycm, Automated exposure control for dose reduction was used. 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 Technique: Multiple axial images of the chest, abdomen, and pelvis were obtained following the intrav enous administration of 100 mL Isovue-300. Oral contrast administered. Two-dimensional coronal and sa gittal reconstructions were obtained. Findings: CHEST: LUNGS/ PLEURA: No pleural effusion, pneumothorax, focal consolidation. Right lower lobe linear scarri ng and/or atelectasis. Marginal increase in size of left apical 6.8 mm solid nodule (series 4, image 7), previously 5.9 mm. New right upper lobe 7.6 mm solid pulmonary nodule (series 4, which 13). Mild centrilobular emphysematous changes. AIRWAY: Patent and unremarkable.. HEART: Size within normal limits. Small pericardial effusion which is slightly increased from prior e xam. MEDIASTINUM: No evidence of adenopathy. VASCULATURE: No aortic aneurysm. Minimal atherosclerotic calcification of the aorta and its branches . MUSCULOSKELETAL: No acute osseous abnormalities. No aggressive osseous lesion. SOFT TISSUES/LYMPH NODES: Unremarkable. LOWER NECK: No significant findings. ABDOMEN: ABDOMEN LIVER: Unremarkable GALLBLADDER AND BILE DUCTS: Postcholecystectomy changes. Mild intra and extrahepatic biliary duct dil atation. Common bile duct measures up to 9 mm. PANCREAS: No pancreatic ductal dilatation. No pancreatic calcifications. Pancreas enhances homogeneou sly. No focal lesion identified on CT. No surrounding inflammatory changes. SPLEEN: Unremarkable. ADRENAL GLANDS: Unremarkable. KIDNEYS AND URETERS: No evidence of hydronephrosis or renal calculus. The kidneys enhance symmetrical ly. Contrast is demonstrated within both collecting systems on delayed phase. Small bilateral subcent imeter renal cysts. PELVIS BLADDER: Unremarkable REPRODUCTIVE: The uterus is surgically absent. ABDOMEN & PELVIS STOMACH AND BOWEL: Stomach and duodenum are unremarkable. No focal bowel wall thickening or surroundi ng inflammatory changes. Distal colonic diverticulosis without evidence for acute diverticulitis. Ent krystle contrast reaches the splenic flexure. Postsurgical changes of the appendix and partial colectomy . No evidence of bowel obstruction. PERITONEUM: No evidence of pneumoperitoneum or free fluid. VASCULATURE: Mild atherosclerotic calcifications are present throughout the abdominal aorta and its b ranches. No abdominal aortic aneurysm. MUSCULOSKELETAL: No acute osseous abnormalities. No aggressive osseous lesion. LYMPH NODES: No gross evidence for lymphadenopathy. SOFT TISSUE/ABDOMINAL WALL: Postsurgical changes anterior midline abdominal wall. IMPRESSION: 1. No abnormal soft tissue within the abdomen or pelvis or lymphadenopathy. 2. New right upper lobe 7.6 mm pulmonary nodule with marginal increase in size of left apical pulmona ry nodule. Raises concern for metastasis. Consider further evaluation with PET/CT. 3. Marginal increase in size of small pericardial effusion. 4. Distal colonic diverticulosis. 5. Mild intrahepatic and extra hepatic biliary ductal dilatation redemonstrated. Marginally decreased in size from prior examination. Correlate with biliary obstruction labs. May be seen with post jodie cystectomy.
== END | disposition home or self-care (01) ==
LOC: RADCTMAIN 09:44
PROVIDERS: ATTEND Internal Medicine
DX: C18.1 Malignant neoplasm of appendix (principal); K12.32 Oral mucositis (ulcerative) due to other drugs; D51.8 Other vitamin B12 deficiency anemias; J44.9 Chronic obstructive pulmonary disease, unspecified; I31.39 Other pericardial effusion (noninflammatory); K57.30 Diverticulosis of large intestine without perforation or abscess without bleeding; R91.8 Other nonspecific abnormal finding of lung field; K83.1 Obstruction of bile duct; Z85.038 Personal history of other malignant neoplasm of large intestine
CPT/HCPCS: 71260; 74177; 36415; Q9967

== ENCOUNTER → 2024-02-05 | Outpatient (CLI) | payer BC ==
[2024-02-05 14:27] LABS: African American GFR (CKD) >90 (>60 ml/min/1.73 sqM); Blood Urea Nitrogen 15 mg/dL (7-17); Non-African American GFR(CKD) >90 (>60 ml/min/1.73 sqM)
--- NOTE | 2024-02-05 15:06 | CT ---
EXAMINATION TYPE: CT chest w con CT DLP: 119.7 mGycm, Automated exposure control for dose reduction was used. DATE OF EXAM: 02/05/2024 2:49 PM COMPARISON: CT chest abdomen pelvis 10/14/2023, CT chest 12/16/2022 CLINICAL INDICATION:Female, 68 years old with history of R91.8 ABNORMAL LUNG FIELD; PHH, Abnormality of lung field found on prior. Hx of appendix CA. TECHNIQUE: Multiple axial images were obtained through the chest following the administration of 100 cc of Isovue 300. . Coronal and sagittal reformats reviewed. FINDINGS: CHEST: LUNGS/ PLEURA: No pleural effusion, pneumothorax, or focal consolidation. Right lower lobe linear sca rring and/or atelectasis. Stable left apical 7 mm pulmonary nodule (series 4, image 5). Stable medial right upper lobe 6 mm pulmonary nodule (series 4, image 11). New posterior left upper lobe 5 mm pulm onary nodular opacity (series 4, image 15). Mild centrilobular emphysematous changes. AIRWAY: Patent and unremarkable. HEART: Size within normal limits.Trace pericardial effusion. MEDIASTINUM: No evidence of adenopathy. VASCULATURE: No aortic aneurysm. Minimal atherosclerotic calcification of the aorta and its branches . MUSCULOSKELETAL: No acute osseous abnormalities. No aggressive osseous lesion. Mild multilevel degene rative disc disease. SOFT TISSUES/LYMPH NODES: Unremarkable. LOWER NECK: No significant findings. UPPER ABDOMEN: No significant findings. IMPRESSION: 1. Couple of stable pulmonary nodules with new left upper lobe 5 mm pulmonary nodular density. Consid er follow-up CT chest in 3 months. 2. No adenopathy. 3. Mild COPD changes. [facility], , 02/05/2024 3:03 PM
== END | disposition home or self-care (01) ==
LOC: RADCTMAIN 13:50
PROVIDERS: ATTEND Internal Medicine Critical Care Medicine
DX: J44.9 Chronic obstructive pulmonary disease, unspecified (principal); R91.8 Other nonspecific abnormal finding of lung field; J98.4 Other disorders of lung; Z85.038 Personal history of other malignant neoplasm of large intestine; Z87.59 Personal history of other complications of pregnancy, childbirth and the puerperium
CPT/HCPCS: 82565; 84520; 71260; 36415; Q9967

== ENCOUNTER → 2024-08-08 | Outpatient (CLI) | payer BC ==
[2024-08-08 13:37] LABS: African American GFR (CKD) >90 (>60 ml/min/1.73 sqM); Blood Urea Nitrogen 19 mg/dL (7-17); Non-African American GFR(CKD) >90 (>60 ml/min/1.73 sqM)
--- NOTE | 2024-08-08 21:32 | CT ---
EXAMINATION TYPE: CT chest w con CT DLP: 235.60 mGycm, Automated exposure control for dose reduction was used. DATE OF EXAM: 08/08/2024 4:04 PM COMPARISON: CT chest 02/05/2024, 12/16/2022, CT chest abdomen and pelvis 10/14/2023. CLINICAL INDICATION:Female, 69 years old with history of R91.8 OTHER NONSPECIFIC ABNORMAL FINDING OF LUNG F; PHH, CONCERNS FOR SPOTS ON LUNGS TECHNIQUE: Multiple axial images were obtained through the chest following the administration of 100 cc of Isovue 300. . Coronal and sagittal reformats reviewed. FINDINGS: CHEST: LUNGS/ PLEURA: No pleural effusion or pneumothorax. Right upper lobe peripheral groundglass scarring is stable. Right lower lobe linear scarring and/or atelectasis. Stable left apical 7 mm pulmonary nod ule (series 4, image 6). Stable medial right upper lobe 5 mm pulmonary nodule (series 4, image 11). P reviously seen posterior left upper lobe nodular opacity is no longer visualized and resolved. Mild c entrilobular emphysematous changes. New 2.2 cm focal consolidative opacity within the left lower lobe lung base (series 4, image 55). AIRWAY: Patent and unremarkable. HEART: Size within normal limits.Trace pericardial effusion. No significant coronary calcifications. MEDIASTINUM: No evidence of adenopathy. VASCULATURE: No aortic aneurysm. Minimal atherosclerotic calcification of the aorta and its branches . No evidence for central pulmonary embolism. MUSCULOSKELETAL: No acute osseous abnormalities. No aggressive osseous lesion. Mild multilevel degene rative disc disease. SOFT TISSUES/LYMPH NODES: Unremarkable. LOWER NECK: No significant findings. UPPER ABDOMEN: Please see CT abdomen from the same date for findings. IMPRESSION: 1. Couple of stable pulmonary nodules with resolution of previously demonstrated left upper lobe pulm onary nodular opacity. There is a new focal consolidative opacity within the left lung base. May repr esent atelectasis and/or pneumonia. Underlying neoplasm is not excluded. Recommend follow-up CT chest in 3 months. 2. No adenopathy. 3. Mild emphysematous changes. [facility], , 08/08/2024 9:30 PM
== END | disposition home or self-care (01) ==
LOC: RADCTMAIN 12:32
PROVIDERS: ATTEND Internal Medicine Critical Care Medicine
DX: J43.2 Centrilobular emphysema (principal); R91.8 Other nonspecific abnormal finding of lung field
CPT/HCPCS: 82565; 84520; 71260; Q9967

== ENCOUNTER → 2024-08-08 | Outpatient (CLI) | payer BC ==
--- NOTE | 2024-08-08 16:48 | CT ---
EXAMINATION TYPE: CT abdomen pelvis w con CT DLP: 127.40 mGycm, Automated exposure control for dose reduction was used. 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 Coronal and sagittal reformats were performed. FINDINGS: LOWER CHEST: Please see dedicated CT chest for findings ABDOMEN LIVER: Couple of subcentimeter cysts redemonstrated. GALLBLADDER AND BILE DUCTS: Postcholecystectomy changes. Mild intra and extrahepatic biliary duct dil atation likely result of post cholecystectomy physiology. Common bile duct measures up to 9 mm. PANCREAS: No pancreatic ductal dilatation. No pancreatic calcifications. Pancreas enhances homogeneou sly. No focal lesion identified on CT. No surrounding inflammatory changes. SPLEEN: Unremarkable. ADRENAL GLANDS: Unremarkable. KIDNEYS AND URETERS: No evidence of hydronephrosis or renal calculus. The kidneys enhance symmetrical ly. Contrast is demonstrated within both collecting systems on delayed phase. Small bilateral subcent imeter simple appearing renal cysts redemonstrated. No follow-up recommended. PELVIS BLADDER: Unremarkable REPRODUCTIVE: The uterus is surgically absent. ABDOMEN & PELVIS STOMACH AND BOWEL: Stomach and duodenum are unremarkable. No focal bowel wall thickening or surroundi ng inflammatory changes. Distal colonic diverticulosis without evidence for acute diverticulitis. Ent krystle contrast reaches the rectum. Postsurgical changes of the appendix and partial colectomy. No evid ence of bowel obstruction. Few scattered sigmoid diverticulosis without evidence for acute diverticul itis. PERITONEUM: No evidence of pneumoperitoneum or free fluid. VASCULATURE: Mild atherosclerotic calcifications are present throughout the abdominal aorta and its b ranches. No abdominal aortic aneurysm. MUSCULOSKELETAL: No acute osseous abnormalities. No aggressive osseous lesion. LYMPH NODES: No evidence for lymphadenopathy. SOFT TISSUE/ABDOMINAL WALL: Postsurgical changes anterior midline abdominal wall. IMPRESSION: 1. No abnormal soft tissue within the abdomen or pelvis or lymphadenopathy to suggest recurrence. 2. Distal colonic diverticulosis. 5. Mild intrahepatic and extra hepatic biliary ductal dilatation redemonstrated. Likely related to po st cholecystectomy physiology. [facility], , 08/08/2024 4:46 PM
== END | disposition home or self-care (01) ==
LOC: RADCTMAIN 13:38
PROVIDERS: ATTEND Internal Medicine
DX: Z03.89 Encounter for observation for other suspected diseases and conditions ruled out (principal); C18.1 Malignant neoplasm of appendix; K57.30 Diverticulosis of large intestine without perforation or abscess without bleeding; K83.8 Other specified diseases of biliary tract
CPT/HCPCS: 74177